=== PATIENT | female | born 1955 | race Caucasian/White ===

== ENCOUNTER 2023-12-03 09:51 | Outpatient (CLI) | payer MEDICARE, MEDICAID, SELFPAY ==
[2023-12-03 11:32] LABS: Alanine Aminotransferase 13 U/L (6-35); Albumin Level 4.1 g/dL (3.5-5.1); Alkaline Phosphatase 48 U/L (38-126); Anion Gap 1 mmol/L (8-16); Aspartate Amino Transferase 22 U/L (14-36); Bilirubin,Total 0.5 mg/dL (0.2-1.3); Blood Urea Nitrogen 21 mg/dL (7-17); Calcium 8.7 mg/dL (8.4-10.2); Carbon Dioxide 34 mmol/L (22-30); Chloride 100 mmol/L (98-107); Estimated Glomerular Filt Rate > 60; Glucose 85 mg/dL (65-110); Potassium 3.8 mmol/L (3.4-5.0); Sodium 135 mmol/L (137-145)
== END 2023-12-03 09:52 | disposition home or self-care (01) ==
PROVIDERS: PCP Family Medicine
DX: I10 Essential (primary) hypertension (principal)
CPT/HCPCS: 36415; 80053

== ENCOUNTER 2025-02-27 00:56 | Day surgery (SDC) | payer MEDICARE, SELFPAY ==
[2025-02-18 15:00] VITALS: BMI 22.4
--- NOTE | 2025-02-18 15:19 | PC.NURSE ---
Report to the Outpatient Waiting Room, entrance under the green pavilion located off [facility], at time ___6:00AM____ on date ___02/27/25___. Planned Procedure Time: ___7:30AM .? Time changes happen often and if your time is changed the preop area will call you the afternoon before. - You and your visitor will be asked to self-screen and do not enter if you have any COVID symptoms. Please call surgeon if you need to reschedule. - A mask is optional within the hospital at this time. Patients may have clear liquids (water, carbonated beverages, clear teas, apple juice) until 3 hours prior to surgery (4:30AM) with a maximum of 20 ounces. - No food from midnight until time of surgery and no smoking, or chewing tobacco (or any form of nicotine). No chewing gum, candy or mints. Take only the following medications with a SIP of water on the morning of surgery: ____AMLODIPINE, ATENOLOL, GABAPENTIN DO NOT STOP ANY OF YOUR OTHER PRESCRIPTION MEDICATIONS PRIOR TO SURGERY EXCEPT THE FOLLOWING Hold all vitamins and supplements for 3 days per anesthesiologist.-LAST DOSE 02/23/25 Please no make-up, nail french, hairspray, perfume, deodorant, or body powder the day of surgery.? No jewelry (including any body piercings) or valuables the day of surgery, leave them at home.? Please take a shower or bath the night before, or the morning of, surgery with an antibacterial soap.? Wear comfortable, loose fitting clothing.? - Jewelry must be removed prior to entering the operating room.? Rings and piercings that are not removed may be cut off. - The hospital will not accept responsibility for valuables.? - Please leave all valuables, including medications, at home the day of surgery. If you are going home after surgery, a licensed ambulance driver must drive you home.? - NO public transportation without another adult if you receive anesthesia. - We recommend that an adult stay with you for 24 hours following discharge. - We also recommend that you do not drive, make important decision, drink alcoholic beverages, or take any drugs that were not prescribed by your health care provider for at least 24 hours after your discharge time. Follow any additional instructions given to you from your surgeon. Telephone instructions given to ___PATIENT and asked if any additional questions and then verbalized understanding. Patient advised to call surgeon office or pre surgery nurse liaison [phone] if any additional questions.
--- NOTE | 2025-02-26 14:22 | WPDANESEPPF ---
Anes - Initial Pre Proc Eval Procedure: Operation Date: 02/27/25 07:30 Proposed Procedures p Excision of Vulvar Lesions - Tarun Arreola MD Date/Time: 02/26/25 14:22 Surgeon: Tarun Arreola MD Pre Op Diagnosis: Vulvar Lesions Patient Data Age: 69 Gender: F Height: 1.68 m Weight: 63 kg Allergies Allergy/AdvReac Type Severity Reaction Status Date / Time No Known Allergies Allergy Verified 02/27/25 06:24 Home Medications ?Medication ?Instructions ?Recorded ?Confirmed ?Type alendronate 70 mg tablet 70 mg PO WEEKLY 02/18/25 02/27/25 History amlodipine 10 mg tablet 10 mg PO QAM 02/18/25 02/27/25 History atenolol 100 mg tablet 100 mg PO QAM 02/18/25 02/27/25 History ergocalciferol (vitamin D2) 1,250 1,250 mcg PO WEEKLY 02/18/25 02/27/25 History mcg (50,000 unit) capsule gabapentin 300 mg capsule 900 mg PO TID 02/18/25 02/27/25 History magnesium 200 mg tablet 800 mg PO TID 02/18/25 02/27/25 History omeprazole 20 mg capsule,delayed 20 mg PO QAM 02/18/25 02/27/25 History release pravastatin 40 mg tablet 40 mg PO HS 02/18/25 02/27/25 History Patient hx anesthesia problems: none Family hx anesthesia problems: none Results Review: All pre-operative results and documents have been reviewed as part of the pre-operative evaluation. [facility] Past Medical History Medical History (Updated 02/26/25 @ 14:22 by Nitesh Akers DO) GERD (gastroesophageal reflux disease) Hypertension Hyperlipidemia Social History Social History Smoking packs per day: 1 Smoking cigarettes per day: 20.0 Years smoked: 50 Smoking pack-years: 50.00 Smoking status: Current every day smoker Tobacco type: cigarettes Alcohol intake: current Living arrangements: with family Additional living arrangements comments: HUSB Spiritual care concerns: No Anes - Eval Final PreProcedure Day of Procedure 02/26/25 14:22 Patient weight: normal Heart: regular rate and rhythm Lungs: clear to auscultation and normal air movement Airway: Mallampati scale class II Neurological: alert and oriented Last oral intake: >/= 8 hours ASA classification: III Emergent: no Anesthetic plan: proceed Anesthesia type and monitoring: general GIVS and standard monitoring Results Review: All pre-operative results and documents have been reviewed as part of the pre-operative evaluation. Informed Consent: The patient's anesthetic plan and its attendant risks and benefits were discussed with the patient/family/POA. Questions were solicited and answers provided to the satisfaction of the patient/family/POA.
--- OUTSIDE RECORDS SUMMARY | 2025-02-27 01:00 | XMS_ITS | Clinical Summary ---
Author Organization [facility] Address [address] [place] [address] Care Team Providers Care Business Support Specialist Name Role Phone Unavailable Primary Care Provider Unavailabl e Source Comments [facility],non-owned Affiliates and Associated Physician Practices is amultiple site organization consisting of ambulatory clinics and hospital sitesin [place], [place], [place] and [place]. This disclosure is being madepursuant to the Care Everywhere program and may not contain all information available regarding this patient. Last updated 18.[facility] Encounters Date Type Department Care Team Description 01/23/2025 Lab Requisition [facility] - DermPath Lab [facility] [place] [address] Raz Delgado MD 01/09/2025 Lab Requisition [facility] - Derm[facility] Lab [address] [place] [address] Raz Delgado MD from Last 3 Months Social History Tobacco Use Types Packs/Day Years Used Date Smoking Tobacco: Never Assessed Comments Unknown Sex and Gender Information Value Date Recorded Sex Assigned at Not on file Legal Sex Female 10:44 AM CDT Gender Identity Not on file Sexual Orientation Not on file Plan of Treatment Health Maintenance Due Date Last Done Comments BONE DENSITY TESTING 1955 COLOGUARD (AGES 45-75) - COL ON CA SCREENING 1955 COLON MONITORING 1953 COLONOSCOPY - COLON CA SCREENING 1953 CT COLONOGRAPHY - COLON CA SCREENING 1955 Colorectal Cancer Screening 1953 FIT - COLON CA SCREENING 1953 FLEX SIG - COLON CA SCREENING 1953 LIPID TESTING 1955 MAMMOGRAM 1953 HEPATITIS C SCREENING 09/12/1971 DTAP/TDAP/TD VACCINES (1 - Tdap) 1972 PNEUMOCOCCAL VACCINE 50+ (1 of 1 - PCV) 2003 ZOSTER VACCINE (1 of 2) 2003 COVID-19 VACCINE (1 - 2023-2 5 season) 2024 DEPRESSION SCREENING 09/12/2024 MEDICARE AWV CALENDAR YEAR 2024 INFLUENZA VACCINE (Season Ended) 2025 Respiratory Syncytial Virus (RSV) Vaccine Pt: or over 60 yrs (1 - 1-dose 75+ series) 2028 HEPATITIS B VACCINE Aged Out No longe r eligible based on patient's age to complete this topic HIB VACCINE Aged Out No longer eligi ble based on patient's age to complete this topic HPV VACCINE Aged Out No longer eligi ble based on patient's age to complete this topic MENINGOCOCCAL (Group B) VACC INE SHARED DECISION-MAKING Aged Out No longer eligibl e based on patient's age to complete this topic MENINGOCOCCAL GROUPS A/C/Y/W VACCINE Aged Out No longer eligible b ased on patient's age to complete this topic Procedures Procedure Name Priority Date/Time Associated Diagnosis Comments DERMATOPATHOLOGY Routine 01/21/2025 12:0 0 AM CDT DERMATOPATHOLOGY Routine 01/07/2025 12:0 0 AM CDT from Last 3 Months Results * DERMATOPATHOLOGY (01/21/2025 12:00 AM CDT) Only the most recent of2 resultswithin the time period is included. Case Report Dermatopathology Report Case: [id number] Authorizing Provider: Raz Delgado MD Collected: 01/21/2025 12:00 AM Ordering Location: [facility] - Received: 01/23/2025 10:54 AM DermPath Lab Pathologist: Kasia Mcqueen MD Specimen: Skin, right nasal fold 2:20 PM CDT DERMATOPATHOLOGY LABORATORY Final Diagnosis Specimen A. SKIN, right nasal fold: DERMAL SCAR RESIDUAL BASAL CELL CARCINOMA NOT IDENTIFIED (L90.5) (see microscopic description) 2:20 PM CDT DERMATOPATHOLOGY LABORATORY at 1419 CDT Clinical History BCC Bx Site. Prior Biopsy 2:20 PM CDT DERMATOPATHOLOGY LABORATORY Gross Description Specimen A: Received is one formalin filled container labeled with the patient's name and designated right nasal fold. The specimen consists of a curettage and desiccation biopsy measuring 2x2x1 mm. Jar 0. 2:20 PM CDT DERMATOPATHOLOGY LABORATORY Microscopic Description Specimen A. SKIN, right nasal fold: There are fibroblasts and collagen bundles oriented parallel to the skin surface. There are elongated blood vessels, some of which are oriented perpendicular to the skin surface. No basal cell carcinoma is identified. The scar-like features are present at the margin of the specimen. Additional deeper sections were obtained and reviewed. 2:20 PM CDT DERMATOPATHOLOGY LABORATORY Disclaimer An external and internal positive and negative controls are appropriate for the histochemical, immunohistochemical and immunofluorescence stain(s) in this case (if any), except where stated explicitly. The performance characteristics of the stain(s) cited in this report were developed and its performance characteristic determined by the Dermatopathology Laboratory at [facility], directed by Dr. Isabell Aguilar. These tests need not be, and therefore are not, approved by the [place] Food and Drug Administration. The tests are used for clinical purposes. Billing Codes Specimen Charges Stain Charges 85373 1 2:20 PM CDT DERMATOPATHOLOGY LABORATORY Embedded Images 2:20 PM CDT DERMATOPATHOLOGY LABORATORY Pathology/Cytolog y TISSUE SPECIMEN FROM SKIN / Unknown 01/21/2025 01/23/2025 10:54 AM CDT us Raz Delgado MD LAB - PATHOLOGY/CYTOLOGY ORDERAB LES Final Result DERMATOPATHOLOGY LABORATORY [facility] - Department of Dermatology [facility] Medicine [address] [place] [address], [address] [place] [address], [facility] [phone] from Last [address] [place] [address] [place] [address] [facility] [place] [address]
--- OUTSIDE RECORDS SUMMARY | 2025-02-27 01:00 | XMS_ITS | Data Portability ---
Author Organization [facility] [place] Address [address] [place] [address] Care Team Providers Care Breadman Name Role Phone CHRISTI TORRES Primary Care Provider [phone] Assessment No assessment recorded. Plan of Treatment Reminders Order Date Submit Date Provider Last Modified By Organization Details Last Modified Time Details Appointments SURG MISC 025 07:30AM Lynne HAWKINS MD Not available Not available Not available SURG POST OP 025 01:45PM Lynne HAWKINS MD Not available Not available Not available Lab None recorde d. Referral None recorde d. Procedures None recorde d. Surgeries excisio n, vulva (SURG) 025 [id number] [facility] [place] [facility], [facility] [address], [address], 01/17/2025 10:26:09 Imaging None recorde d. Medication Orders None recorde d. Patient TargetsNo targets recorded. Patient InstructionsNo instructions recorded. Reason for Referral None Reported. Procedures Surgical History Date Name Laterality Status Provider Name and Address Organization Details Recorded Time 5 Orthopedic Surgery completed [facility] 01/09/2025 15:00:37 4 Date of Last Mammogram completed [facility] 01/09/2025 14:56:06 4 Date of Last Colonoscopy completed [facility] 01/09/2025 14:57:37 2 Breast Biopsy completed [facility] 01/09/2025 15:03:06 1 excision of basal cell carcinoma completed [facility] 01/09/2025 15:03:58 0 excision of basal cell carcinoma completed [facility] 01/09/2025 15:03:51 Imaging Results None recorded. Procedure Notes None recorded. Medical Equipment None Reported. Allergies No known drug allergies Medications Name Sig Start Date Stop Date Status Note LastModified by Organization Details LastModified Time pravastatin 40 mg tablet TAKE 1 TABLET BY MOUTH AT BEDTIME active Not Available Not Available No t Available atenolol 100 mg tablet TAKE 1 TABLET BY MOUTH ONCE DAILY active Not Available Not Available No t Available alendronate 70 mg tablet TAKE 1 TABLET BY MOUTH ONCE A WEEK active Not Available Not Available No t Available diazepam 2 mg tablet Take 1 tablet 3 times a day by oral route. active Not Available Not Available No t Available amlodipine 10 mg tablet TAKE 1 TABLET BY MOUTH ONCE DAILY active Not Available Not Available No t Available gabapentin 300 mg capsule TAKE 3 CAPSULES BY MOUTH THREE TIMES DAILY active Not Available Not Available No t Available omeprazole 20 mg capsule,delaye d release TAKE 1 CAPSULE BY MOUTH ONCE DAILY NEEDED active Not Available Not Available No t Available ergocalciferol (vitamin D2) 1,250 mcg (50,000 unit) capsule TAKE 1 CAPSULE BY MOUTH EVERY TUESDAY active Not Available Not Available No t Available Vitals Date Recorded Body height Body mass index (BMI) Body weight Systolic blood pressure Diastolic blood pressure Provider Name and Address Organization Details Last Updated DateTime 01/09/2025 167.64 cm 23.2 kg/m2 58567.3 g 124 mm[Hg] 72 mm[Hg] [facility] 5 14:52:39 Social History Question Answer Notes LastModified by Organizat ion Details LastModified Time In The 14 Days Before Symptom Onset, Have You Had Close Contact With A Laboratory-confirmed COVID-19 While That Case Was Ill? No Information not available 01/09/2025 In The 14 Days Before Symptom Onset, Have You Had Close Contact With A Person Who Is Under Investigation For COVID-19 While That Person Was Ill? No Information not available 01/09/2025 Have You Been To An Area Known To Be High Risk For COVID-19? No Information not available 01/09/2025 Sex: Unknown Functional Status None recorded. Mental Status None recorded. Family History Relationship Description Onset Age of this Age Resolved Age Notes LastModified by Organization Details LastModified Time Father No current problems or disability Not available 01/09 14:59:40 Mother No current problems or disability Not available 01/09 14:59:40 Mother Malignant tumor of breast Not available 2024 14:59:54 Daughter Malignant tumor of breast Not available 2024 14:59:54 Medical History Condition Response Allergies (Food, seasonal, environmental ) N Other N Drug/Latex Allergies/Reactions N Blood Transfusion N Breast Cancer N Dermatologic Disorders N Lung Disease N Defects or Inherited Disease N Breast Problem N Gestational Diabetes N Hematologic disorders N Anesthesia Complications N History of STI N Deep Vein Thrombosis N Polycystic ovary syndrome N Anxiety Disorder N Autoimmune disease N Arthritis N Polyps N Infertility N Acid Reflux (GERD) N History of abnormal pap N Cancer N Varicosities N Stroke N Neurologic/Epilepsy Y Endometriosis N High Cholesterol N Fibromyalgia N Headaches N Kidney Disease N Heart Problems N Thyroid Problems N Kidney or Bladder Problems N GI Problems N Eating Disorder N Anemia N Art (IVF or FET) N Psychiatric Illness N Ovarian Cancer N Diabetes N Pulmonary (TB, Asthma) N Hepatitis/Liver Disease N No Past Medical History N Eczema N Urinary Tract Infection N Abuse/Domestic Violence N Asthma N Trauma/Violence N Depression/ depression N Heart Disease N Pre-Eclampsia N Hypertension Y Osteoporosis N Thrombophilias N Gynecological History Statement/Question Response Abnormal Pap N Date of Last Mammogram 09/12/2023 Was last menstrual period normal Y STIs/STDs N HPV Vaccine N Current Control Method Abstinence If Post Menopausal, Age at Menopause 44 Are cycles usually normal Y Date of Last Colonoscopy 09/12/2023 Sexually Active? N Menses Monthly N Age of first menstrual cycle 11 Date of Last Pap Smear Sexual Problems? N LMP Unknown Obstetrics History GPAL:G 2 P 0 0 0 2 Type Value Living 2 Total 2 Past Encounters Encounter ID Performer Location Encounter Start Date Encounter Closed Date Diagnosis/Indication Diagnosis SNOMED-CT Code Diagnosis ICD10 Code Diagnosis Note [id number] Tarun Hawkins MD [facility] [address] [address] 01/09/2025 14:21:43 01/09/2025 14:42:13 [id number] Tarun Hawkins MD [facility] [address] [address] 01/09/2025 14:46:45 01/09/2025 15:28:52 Lesion of vulva 505101719 [age] year old female with symptomati c vulvar lesions. She has multiple inclusion cysts on the right. these rub on her clothing and become inflamed and irritated. They cause discomfort . She would like them removed. It was examined. There are 4-5 inclusion cyst on the right labia majora. We agreed to remove the cyst surgically under anesthesia . The patient understand s the procedure. The procedure was described to the patient in great detail. the patient also understand s the risks. The risks were also explained in detail. She understand s that injuries May occur during surgery. She understand s these injuries can result in hospitaliz ation, more surgery, and severe illness. She understand s there is risk of hemorrhage and infection. I spent more than 30 minutes on her care in total. Health Concerns Section Related Observation LastModified by Organization Detai ls LastModified Time None Recorded Concern Status LastModified by Organization Details LastModified Time None Recorded Advance Directives Directive None Recorded Payers Insurance Date Sequence Insurance Name Policy Number Policy Zapien Covered Member ID Zapien Member ID Guarantor Name 02/24/2025 1 [facility] [id number] Odalis Álvaro [id number] Odalis Rea Notes Date Note Type Note Provider Name and Address Organization Details Recorded Time 01/09/2025 text/html year old female with symptomatic vulvar lesions. She has multiple inclusion cysts on the right. these rub on her clothing and become inflamed and irritated. They cause discomfort. She would like them removed. It was examined. There are 4-5 inclusion cyst on the right labia majora. We agreed to remove the cyst surgically under anesthesia. The patient understands the procedure. The procedure was described to the patient in great detail. the patient also understands the risks. The risks were also explained in detail. She understands that injuries May occur during surgery. She understands these injuries can result in hospitalization, more surgery, and severe illness. She understands there is risk of hemorrhage and infection. I spent more than 30 minutes on her care in total. Tarun Hawkins MD [address], [place], [address], [facility] 01/09/2025 15:28:03 OBGyn Episode Ob Episode Information Episode Created Date Number of Fetuses Patient Bloodtype Patient rh Status Prepregnancy Weight lbs Domestic Partner Domestic Partner Phone Father Name Options Advisor Status 01/10/20 25 1 CLOSED Fetus Data First Name Last Name Admitted to NICU Weight (g) Sex Living Outcome Pediatric Complications Fetus ID Race Codes Race Delivery Type 3713.55 [id number] F Full Term [id number] Vaginal Delivery Ja Calculation Initial Ja Date Initial Exam Date Initial Exam Provider Initial Ultrasound Date Last Menstrual Period Date Ultra Sound Weeks Gestation 0 Eighteen To Twenty Week Ja Update Ultra Sound Date Fundal Height At Umbil Quickening Date Ultra Sound Latest Weeks Gestation Final Ja Confirmed By Final Ja Confirmed Date Final Ja Date Ultra Sound Latest Days Gestation 0 0 Menstrual History Last Menstrual Date Menses Monthly On Bcp Conception Prior Menses Frequency Hcg Plus Date Menarche Onset Age Delivery Information Delivery Date Delivery Type Labor Anesthesia Weeks Gestation Incision Type Labor Labor Length Hrs Delivered By Post Complications Tubal Sterilization Discharge Date Comments 3 40 passed from breast cancer at age 30 Discharge Information Feeding Method Contraceptive Method Maternal HG B and HCT Levels Ob Episode Information Episode Created Date Number of Fetuses Patient Bloodtype Patient rh Status Prepregnancy Weight lbs Domestic Partner Domestic Partner Phone Father Name Options Advisor Status 01/10/20 25 1 CLOSED Fetus Data First Name Last Name Admitted to NICU Weight (g) Sex Living Outcome Pediatric Complications Fetus ID Race Codes Race Delivery Type 3826.95 [id number] M Full Term [id number] Vaginal Delivery Ja Calculation Initial Ja Date Initial Exam Date Initial Exam Provider Initial Ultrasound Date Last Menstrual Period Date Ultra Sound Weeks Gestation 0 Eighteen To Twenty Week Ja Update Ultra Sound Date Fundal Height At Umbil Quickening Date Ultra Sound Latest Weeks Gestation Final Ja Confirmed By Final Ja Confirmed Date Final Ja Date Ultra Sound Latest Days Gestation 0 0 Menstrual History Last Menstrual Date Menses Monthly On Bcp Conception Prior Menses Frequency Hcg Plus Date Menarche Onset Age Delivery Information Delivery Date Delivery Type Labor Anesthesia Weeks Gestation Incision Type Labor Labor Length Hrs Delivered By Post Complications Tubal Sterilization Discharge Date Comments 7 40 Discharge Information Feeding Method Contraceptive Method Maternal HG B and HCT Levels
--- OUTSIDE RECORDS SUMMARY | 2025-02-27 01:00 | XMS_ITS | Clinical Summary ---
Author Organization [facility] Building [address] [facility] [place] [address] Care Team Providers Care Process Improvement Analyst Name Role Phone Yaya Sargent MD Primary Care Provider [phone] Garfield Cook MD Unavailable [phone] Allergies No known active allergies Medications alendronate (FOSAMAX) 70 mg tablet Take 70 mg by mouth every 7 days Take in the morning with a full glass of water, on an empty stomach, and do not take anything else by mouth or lie down for the next 30 min. Active amLODIPine (NORVASC) 10 mg tablet Take 10 mg by mouth daily Active atenoloL (TENORMIN) 100 mg tablet Take 100 mg by mouth daily Active gabapentin (NEURONTIN) 300 mg capsule Take 300 mg by mouth 3 (three) times a day Takes 900mg TID Active magnesium oxide 400 mg magnesium capsule Take 800 mg by mouth 3 (three) times a day Active mirtazapine (REMERON) 15 mg tablet Take 15 mg by mouth nightly Active omeprazole (PriLOSEC) 20 mg capsule Take 20 mg by mouth daily Active pravastatin (PRAVACHOL) 40 mg tablet Take 40 mg by mouth daily Active cholecalciferol (VITAMIN D-3) 50,000 unit capsule Take 50,000 Units by mouth once a week Active biotin 1 mg capsule Take by mouth States not taking right now, instructed to not take one week prior to surgery and can resume after surgery Active oxyCODONE (ROXICODONE) 5 mg immediate release tabletIndicatio ns:Pain Take 1 tablet (5 mg total) by mouth every 6 (six) hours as needed for pain 10 tablet 2 Active Active Problems Problem Noted Date Diagnosed Date History of breast surgery 11/12/2021 Encounters Date Type Department Care Team Description 01/05/2025 11:51 AM CDT - 01/05/2025 11:59 PM CDT Hospital Encounter [address] [address] Nicotine dependence, cigarettes, uncomplicated Discharge Disposition: Discharge to home or self care from Last 3 Months Surgical History Surgery Date Site/Laterality Comments BREAST BIOPSY Right BREAST BIOPSY 09/22/2021 Left ANKLE FRACTURE SURGERY Right CYST REMOVAL TONSILLECTOMY Medical History Medical History Date Comments Skin cancer Hypertension GERD (gastroesophageal reflux disease) acid reflux Neuropathy Family History Medical History Relation Name Comments Breast cancer Daughter Breast cancer Mother Relation Name Status Comments Daughter Mother Social History Tobacco Use Types Packs/Day Years Used Date Smoking Tobacco: Every Day Cigarettes 0.8 50 AUDIT-C Answer Date Recorded Q1: How often do you have a drink containing alc ohol? Never 11/12/2021 Q2: How many drinks containi ng alcohol do you have on a typical day when you are drinking? 1 or 2 11/12/2021 Q3: How often do you have six or more drinks on one occasion? 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 Gender Identity Not on file Sexual Orientation Not on file Obstetrics History Para Term AB IAB SAB Ectopic Multiple Livin g Live Births 2 2 2 Date Outcome GA Total Labor Labor/2nd/3rd Weight Sex Type Anes PTL Denise A1 A5 Name Clin Term Term Last Filed Vital Signs Vital Sign Reading Time Taken Comments Blood Pressure 145/79 11/13/2021 7:18 AM COLLEGE OR UNIVERSITY BUSINESS MANAGER Pulse 61 11/13/2021 11:00 AM COLLEGE OR UNIVERSITY BUSINESS MANAGER Temperature 36.7 C (98.1 F) 11/13/2021 7:18 AM COLLEGE OR UNIVERSITY BUSINESS MANAGER Respiratory Rate 18 11/13/2021 7:18 AM COLLEGE OR UNIVERSITY BUSINESS MANAGER Oxygen Saturation 98% 11/13/2021 7:18 AM COLLEGE OR UNIVERSITY BUSINESS MANAGER Inhaled Oxygen Concentration - - Weight 68.5 kg (151 lb) 11/12/2021 10:34 AM COLLEGE OR UNIVERSITY BUSINESS MANAGER Height 170.2 cm (5' 7) 11/12/2021 10:34 AM COLLEGE OR UNIVERSITY BUSINESS MANAGER Body Mass Index 23.65 11/12/2021 10:34 AM COLLEGE OR UNIVERSITY BUSINESS MANAGER Plan of Treatment Health Maintenance Due Date Last Done Comments Colon Cancer Screening-Colonoscopy 1955 Depression Screening 1955 Hepatitis C Screening 1955 Hepatitis B Screening 1971 Zoster Vaccine (2 of 3) 01/30/2015 12/05/2014 Well Visit 65+ 2018 Pneumococcal vaccine 65+ (2 of 2 - PCV) 12/14/2019 12/13/2018 Osteoporosis Screening-Bone Density Scan 08/18/2020 08/18/2018 Fall Risk Assessment 11/12/2022 11/12/2021 Covid-19 Vaccine (5 - 2023-2 5 season) 2024 02/10/2022, 07/29/2021, 12/31/2020, Additional history exists DTaP/Tdap/Td Vaccine (2 - Td or Tdap) 12/05/2024 12/05/2014 Breast Cancer Screening-Mammogram 06/11/2025 06/11/2024, 06/08/2023, 08/05/2021, Additional history exists Lung Cancer Screening 01/06/2026 01/05/2025 Influenza Vaccine Completed 06/18/2024, , 06/26/2020, Additional history exists Medical Devices Implanted Type Area [employer]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 Device 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 Shelf Expiration Date Model / Serial / Lot Plate Plate Right: Ankle [employer] [id number] Orange 20ga 5cm Reposition J Curve Wire Centimeter Oumar Stabilizer - [id number] Implanted:Qty: 1 on 11/12/2021 at [facility] [employer] [id number] 02/18/2026 [id number] / / [id number] Procedures Procedure Name Priority Date/Time Associated Diagnosis Comments CT LUNG CANCER SCREENING Schedule Routine, Read Routine (OP Routine) 01/05/2025 12:02 PM CDT Nicotine dependence, cigarettes, uncomplicated SCREENING MAMMOGRAM BILATERAL W SERGIO Schedule Routine, Read Routine (OP Routine) 06/11/2024 12:48 PM CDT Screening mammogram, encounter for DEXA AXIAL SKELETON BONE DENSITY 1 OR MORE SITES Routine 08/18/2018 9:10 AM COLLEGE OR UNIVERSITY BUSINESS MANAGER from Last 3 Months or Most Recently Relevant to Health Maintenance Results * CT Lung Cancer Screening (01/05/2025 12:02 PM CDT) Anatomical Region Laterality Modality Chest N/A Computed Tomogra phy 01/17/2025 8:51 AM CDT Narrative 01/17/2025 8:56 AM CDT EXAM DESCRIPTION: CT LUNG CANCER SCREENING REASON FOR STUDY: Screening CT of the chest in a current smoker with a 50 pack year smoking history. Additional history: None. TECHNIQUE: Low dose CT scan of the chest was performed without intravenous contrast using helical scanning technique. The exam extends from the lung apices through the lung bases. Automatic exposure control was used as a dose optimization technique. NOTE: This study was performed for the specific purposes of lung cancer screening and is not an alternative to diagnostic chest CT. RADIATION DOSE: CT dose index volume (CTDIvol) = 2.89 mGy COMPARISON: None FINDINGS: SMOKING RELATED LUNG DISEASE: There are mild emphysematous changes of lungs with scattered mild subsegmental atelectasis and scarring. There are scattered ground-glass centrilobular airspace opacities in the bilateral lungs, which is likely due to smoking-related respiratory bronchiolitis. There is minimal right apical and mild left apical pleural thickening and scarring. There is no definite evidence of a pneumothorax. There is scattered bronchial wall thickening, which is likely related to mild chronic bronchitis/bronchiolitis. There is no definite evidence of a focal consolidation or pleural effusion. There is a small calcified granuloma in the medial right lower lobe. LUNG NODULES: There are scattered small pulmonary nodules noted. For example, there is a subpleural 0.3 cm pulmonary nodule in the anterior right upper lobe (axial image 61). There is a subpleural 0.2 cm pulmonary nodule in the anterior right upper lobe (axial image 75). There is a subpleural 0.4 cm pulmonary nodule in the lateral right lower lobe (axial image 154). There is a subpleural 0.3 cm pulmonary nodule in the posterolateral left upper lobe (axial image 133). CORONARY ARTERY CALCIFICATION: Present. OTHER: The heart size is normal. There is no definite evidence of pericardial effusion. There are atherosclerotic changes of the thoracic aorta and coronary vessels. There is no definite unenhanced CT evidence of mediastinal, hilar, or axillary lymphadenopathy. There are scattered subcentimeter mediastinal lymph nodes noted with the largest measuring 0.7 cm in the subcarinal region (axial image 138). The right adrenal gland is grossly unremarkable. There is nonspecific nodular thickening of the left adrenal gland. There is a 2.0 cm left adrenal nodule, which demonstrates attenuation characteristics compatible with a benign adrenal adenoma, therefore no follow-up imaging is recommended. There is mild osteopenia with mild degenerative changes of the spine. IMPRESSION: Scattered small pulmonary nodules with the largest measuring up to 0.4 cm. Mild emphysematous changes of lungs with scattered mild subsegmental atelectasis and scarring. Scattered ground-glass centrilobular airspace opacities in the bilateral lungs, which is likely due to smoking-related respiratory bronchiolitis. Scattered bronchial wall thickening, which is likely related to mild chronic bronchitis/bronchiolitis. Lung-RADS category 2: Benign appearance or behavior. Recommendation: Low dose Screening CT of chest in 12 months. THIS IS AN ELECTRONICALLY VERIFIED FINAL REPORT 01/17/2025 8:56 AM - Electronically signed by Daryl Mercado D.O. PS: PS Report ID: [id number] Reading Location: [id number] Procedure Note Daryl Mercado, DO - 01/17/2025 EXAM DESCRIPTION: CT LUNG CANCER SCREENING REASON FOR STUDY: Screening CT of the chest in a current smoker with a50 pack year smoking history. Additional history: None. TECHNIQUE: Low dose CT scan of the chest was performed without intravenous contrast using helical scanning technique. The exam extends from the lung apices through the lung bases. Automatic exposure control was used as adose optimization technique. NOTE: This study was performed for the specific purposes of lung cancer screening and is not an alternative to diagnostic chest CT. RADIATION DOSE: CT dose index volume (CTDIvol) = 2.89 mGy COMPARISON: None FINDINGS: SMOKING RELATED LUNG DISEASE: There are mild emphysematouschanges of lungs with scattered mild subsegmental atelectasis and scarring. Thereare scattered ground-glass centrilobular airspace opacities in the bilateral lungs, which is likely due to smoking-related respiratory bronchiolitis. There is minimal right apical and mild left apical pleural thickening and scarring. There is no definite evidence of a pneumothorax. There is scattered bronchial wall thickening, which is likely related to mildchronic bronchitis/bronchiolitis. There is no definite evidence of a focal consolidation or pleural effusion. There is a small calcified granulomain the medial right lower lobe. LUNG NODULES: There are scattered small pulmonary nodules noted. For example, there is a subpleural 0.3 cm pulmonary nodule in the anteriorright upper lobe (axial image 61). There is a subpleural 0.2 cm pulmonarynodule in the anterior right upper lobe (axial image 75). There is a subpleural 0.4cm pulmonary nodule in the lateral right lower lobe (axial image 154). Thereis a subpleural 0.3 cm pulmonary nodule in the posterolateral left upper lobe (axial image 133). CORONARY ARTERY CALCIFICATION: Present. OTHER: The heart size is normal. There is no definite evidence of pericardial effusion. There are atherosclerotic changes of the thoracicaorta and coronary vessels. There is no definite unenhanced CT evidence of mediastinal, hilar, oraxillary lymphadenopathy. There are scattered subcentimeter mediastinal lymphnodes noted with the largest measuring 0.7 cm in the subcarinal region (axialimage 138). The right adrenal gland is grossly unremarkable. There is nonspecificnodular thickening of the left adrenal gland. There is a 2.0 cm left adrenalnodule, which demonstrates attenuation characteristics compatible with a benign adrenal adenoma, therefore no follow-up imaging is recommended. There is mild osteopenia with mild degenerative changes of the spine. IMPRESSION: Scattered small pulmonary nodules with the largest measuring up to 0.4cm. Mild emphysematous changes of lungs with scattered mild subsegmental atelectasis and scarring. Scattered ground-glass centrilobular airspace opacities in the bilateral lungs, which is likely due to smoking-related respiratory bronchiolitis. Scattered bronchial wall thickening, which is likely related to mildchronic bronchitis/bronchiolitis. Lung-RADS category 2: Benign appearance or behavior. Recommendation: Low dose Screening CT of chest in 12 months. THIS IS AN ELECTRONICALLY VERIFIED FINAL REPORT 01/17/2025 8:56 AM - Electronically signed by Daryl Mercado D.O. PS: PS Report ID: [id number] Reading Location: [id number] Yaya Sargent MD IMG CT PROCEDURES Final Resul t * Screening Mammogram Bilateral W Sergio (06/11/2024 12:48 PM CDT) Anatomical Region Laterality Modality Breast Bilateral Mammography Impressions 06/11/2024 1:05 PM CDT BI-RADS ATLAS category (overall): 2 - Benign There is no mammographic evidence of malignancy. A 1 year screening mammogram is recommended. The patient has been or will be contacted. We recommend annual screening mammography for women at average risk of breast cancer beginning at age 40, based on guidelines of the [employer] (ACR Practice Parameter for the Performance of Screening and Diagnostic Mammography) and [place]. For women with and elevated risk of breast cancer, please refer to the ACR Practice Parameter for specific screening recommendations. The patient will be entered into a reminder system with a target due date of 1 year for her next screening exam. Narrative 06/11/2024 1:05 PM CDT Screening Mammogram Bilateral W Sergio: 06/11/24 The study was acquired using full field digital technology and interpreted from soft copy. 2D digital mammographic views, as well as 3D digital tomosynthesis were performed in the CC and MLO projections. CLINICAL: Screening mammogram, encounter for. No relevant medical history has been documented for this patient. History of breast cancer in Mother, Daughter. COMPARISONS: 06/08/2023 Screening Mammogram Bilateral W Sergio 02/15/2022 Diagnostic Mammogram Left W Sergio 11/12/2021 Radiologic Examination of Surgical Specimen 11/12/2021 Mammo Guided Localization Breast Left 09/22/2021 Stereotactic Breast Biopsy Left BREAST TISSUE: There are scattered areas of fibroglandular density. FINDINGS: Unchanged benign mass in the right breast. A biopsy marker clip is unchanged in the right breast. There are stable post operative changes in the left breast. There is no new suspicious finding in either breast on mammogram. Self Screening Mammogram IMG MAMMO PROCEDURES Fi nal Result * Dexa Axial Skeleton Bone Density 1 or 2 Site (08/18/2018 9:10 AM COLLEGE OR UNIVERSITY BUSINESS MANAGER) Anatomical Region Laterality Modality Body N/A Radiographic Rufina ging 08/18/2018 9:10 AM COLLEGE OR UNIVERSITY BUSINESS MANAGER Impressions 08/18/2018 2:02 PM COLLEGE OR UNIVERSITY BUSINESS MANAGER 1. Low bone mass by WHO criteria. 2. The WHO fracture risk assessment tool (FRAX) indicates that the 10 year risk for a major osteoporotic fracture is 11.0% and the 10 year risk for a hip fracture is 2.8%. The FRAX tool has not been validated in patients currently or previously treated with pharmacotherapy for osteoporosis. In such patients, clinical judgement must be exercised in interpreting FRAX scores as the fracture risk may be overestimated. Bone mineral density: Normal (T-score above or = -1.0) Low bone mass (T-score between -1.0 and -2.5) replaces the previously used term osteopenia Osteoporosis (T-score = or below -2.5) Medical evaluation for secondary causes of low bone mineral density may be appropriate. FRAX is a World Health Organization validated fracture risk assessment tool that calculates a person's 10 year probability of a major osteoporosis related fracture and hip fracture. According to the National Osteoporosis Foundation guidelines, postmenopausal women and men age 50 or older with low bone mass and a 10 year probability of a major osteoporosis related fracture = or greater than 20% or a 10 year probability of a hip fracture = or greater than 3% should be considered for treatment. For further information, including treatment recommendations, please refer to the 2013 ISCD Official Positions (http://www.iscd.org) and the NOF's Clinician's Guide to Prevention and Treatment of Osteoporosis (http://www.nof.org/professionals/clinical-guidelines) THIS IS AN ELECTRONICALLY VERIFIED FINAL REPORT 08/18/2018 1:59 PM - Electronically signed by Zachary Butler M.D. AB: Report ID: [id number] Reading Location: [id number] [EOD] Narrative 08/18/2018 2:02 PM COLLEGE OR UNIVERSITY BUSINESS MANAGER EXAM DESCRIPTION: Bone Density Hip/Spine (STD) REASON FOR STUDY: 62-year-old postmenopausal female, screening for osteoporosis. 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/Model: Hologic Horizon A (S/N [id number]) CLINICAL INFORMATION: Current height: 67 inches Maximum height: 67 inches Weight: 162 pounds Risk factors: Current tobacco use COMPARISON: None available. This will serve as a new baseline. Acquisition of a new DXA machine precludes comparison with older exams due to differences in scan type. FINDINGS: AP LUMBAR SPINE L1-L4: Total BMD is 0.908 g/cm2 T-score is -1.3 LEFT HIP: Total BMD is 0.751 g/cm2 T-score is -1.6 Femoral neck BMD is 0.620 g/cm2 T-score is -2.1 Procedure Note Provider, MD Donita - 01/28/2021 EXAM DESCRIPTION: Bone Density Hip/Spine (STD) REASON FOR STUDY: 62-year-old postmenopausal female, screening for osteoporosis. 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/Model: [employer] Horizon A (S/N [id number]) CLINICAL INFORMATION: Current height: 67 inches Maximum height: 67 inches Weight: 162 pounds Risk factors: Current tobacco use COMPARISON: None available. This will serve as a new baseline. Acquisition of a new DXA machineprecludes comparison with older exams due to differences in scan type. FINDINGS: AP LUMBAR SPINE L1-L4: Total BMD is 0.908 g/cm2 T-score is -1.3 LEFT HIP: Total BMD is 0.751 g/cm2 T-score is -1.6 Femoral neck BMD is 0.620 g/cm2 T-score is -2.1 IMPRESSION: 1. Low bone mass by WHO criteria. 2. The WHO fracture risk assessment tool (FRAX) indicates that the 10 year risk for a major osteoporotic fracture is 11.0% and the 10 year risk for ahip fracture is 2.8%. The FRAX tool has not been validated in patients currently or previously treated with pharmacotherapy for osteoporosis. In such patients, clinical judgement must be exercised in interpreting FRAX scores as the fracturerisk may be overestimated. Bone mineral density: Normal (T-score above or = -1.0) Low bone mass (T-score between -1.0 and -2.5) replaces the previously used term osteopenia Osteoporosis (T-score = or below -2.5) Medical evaluation for secondary causes of low bone mineral density may be appropriate. FRAX is a World Health Organization validated fracture risk assessmenttool that calculates a person's 10 year probability of a major osteoporosisrelated fracture and hip fracture. According to the National OsteoporosisFoundation guidelines, postmenopausal women and men age 50 or older with low bonemass and a 10 year probability of a major osteoporosis related fracture = or greater than 20% or a 10 year probability of a hip fracture = or greaterthan 3% should be considered for treatment. For further information, including treatment recommendations, please referto the 2013 ISCD Official Positions (http://www.iscd.org) and the NOF's Clinician's Guide to Prevention and Treatment of Osteoporosis (http://www.nof.org/professionals/clinical-guidelines) THIS IS AN ELECTRONICALLY VERIFIED FINAL REPORT 08/18/2018 1:59 PM - Electronically signed by Zachary Butler M.D. AB: Report ID: [id number] Reading Location: [place] [id number] [EOD] Yaya Sargent MD IMG DXA PROCEDURES Final Resu lt from Last 3 Months or Most Recently Relevant to [place] [address] [facility] MEDICARE [facility] REF IDPA [facility] H[facility] REF IDPA Advance Directives For more information, please contact: [phone] * Full Code (Latest Code Status on File) Date Activated Date Inactivated Comments 11/12/2021 10:35 AM 11/13/2021 2:39 PM Care Teams Process Improvement Analyst Relationship Specialty Start Date End Date Yaya Sargent MD [id number] [facility] [address] [place] [address] PCP - General 12/20/18 Garfield Cook MD [address] [place] [address] [address] [place] [address] Consulting Physician Surgery 11/13/21
--- OUTSIDE RECORDS SUMMARY | 2025-02-27 01:00 | XMS_ITS | Referral Summary ---
Author Organization [facility] Medical Office Building [address] Address [address] [place] [address] Care Team Providers Care Shift Mechanic Name Role Phone Yaya Sargent MD Primary Care Provider [phone] Garfield Cook MD Unavailable [phone] Encounters Date Type Department Care Team Description 01/05/2025 11:51 AM CDT - 01/05/2025 11:59 PM CDT Hospital Encounter [facility] [address] [place] [address] Nicotine dependence, cigarettes, uncomplicated Discharge Disposition: Discharge to home or self care from Last 3 Months Allergies No known active allergies Medications alendronate [...] hours as needed for pain 10 tablet Active Active Problems Problem Noted Date Diagnosed Date History of breast surgery 11/12/2021 Social History Tobacco Use Types Packs/Day Years [...] on file Legal Sex Female 2:15 AM 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 Gender Identity Not on file Sexual Orientation Not on file Last Filed Vital Signs Vital Sign Reading Time Taken Comments Blood Pressure 145/79 11/13/2021 7:18 AM 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 Pulse 61 11/13/2021 11:00 AM 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 Temperature 36.7 C (98.1 F) 11/13/2021 7:18 AM 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 Respiratory Rate 18 11/13/2021 7:18 AM 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 Oxygen Saturation 98% 11/13/2021 7:18 AM 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 Inhaled Oxygen Concentration - - Weight 68.5 kg (151 lb) 11/12/2021 10:34 AM 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 Height 170.2 cm (5' 7) 11/12/2021 10:34 AM 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 Body Mass Index 23.65 11/12/2021 10:34 AM 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 Plan of Treatment Not on file Medical Devices Implanted Type Area Cotton Seed Culler Device Identifier Shelf Expiration Date Model / Serial / Lot Plate Plate 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: 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 [employer] [id number] Bucyrus 20ga 5cm Reposition J Curve Wire Centimeter Oumar Stabilizer - [id number] Implanted:Qty: 1 on 11/12/2021 at [facility] Rig Builder [employer] [id number] 02/18/2026 [id number] / / [id number] Procedures Procedure Name Priority Date/Time Associated Diagnosis Comments CT LUNG CANCER SCREENING Schedule Routine, Read Routine (OP Routine) 01/05/2025 12:02 PM CDT Nicotine dependence, cigarettes, uncomplicated SCREENING MAMMOGRAM BILATERAL W SERGIO Schedule Routine, Read Routine (OP Routine) 06/11/2024 12:48 PM CDT Screening mammogram, encounter for DEXA AXIAL SKELETON BONE DENSITY 1 OR MORE SITES Routine 08/18/2018 9:10 AM 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 from Last 3 Months or Most Recently [...] Daryl Mercado D.O. PS: PS Report ID: [id number] Reading Location: [id number] Procedure Note Daryl Mercado DO - 01/17/2025 EXAM DESCRIPTION: CT LUNG [...] Daryl Mercado D.O. PS: PS Report ID: [id number] Reading Location: [id number] us Yaya Sargent MD IMG CT PROCEDURES Final [...] age 38, based on guidelines of the [employer] (ACR Practice Parameter for the Performance of Screening and Diagnostic Mammography) and [employer]. For women [...] suspicious finding in either breast on mammogram. us Self Screening Mammogram IMG MAMMO PROCEDURES Fi nal Result * Dexa Axial Skeleton Bone Density 1 or 2 Site (08/18/2018 9:10 AM 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) Anatomical Region Laterality Modality Body N/A Radiographic Rufina ging 08/18/2018 9:10 AM 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 Impressions 08/18/2018 2:02 PM 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 1. Low bone mass by WHO criteria. [...] by Zachary Butler M.D. AB: Report ID: [id number] Reading Location: [place] [id number] [EOD] Narrative 08/18/2018 2:02 PM 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 EXAM DESCRIPTION: Bone Density Hip/Spine (STD) REASON FOR STUDY: 62-year-old postmenopausal female, screening for osteoporosis. Cotton Seed Culler/Model: [employer] Horizon A (S/N [id number]) CLINICAL INFORMATION: Current height: 67 inches Maximum [...] STUDY: 62-year-old postmenopausal female, screening for osteoporosis. Cotton Seed Culler/Model: [employer] Horizon A (S/N [id number]) CLINICAL INFORMATION: Current height: 67 inches Maximum [...] by Zachary Butler M.D. AB: Report ID: [id number] Reading Location: [id number] [EOD] Yaya Sargent MD IMG DXA PROCEDURES Final Resu lt from Last 3 Months or Most Recently Relevant to [place] [address] [facility] MEDICARE ADVANTAGE [facility] H[facility] REF IDPA [facility] REF IDPA Advance Directives For more information, please contact: [phone] * Full Code (Latest Code Status on File) Date Activated Date Inactivated Comments 11/12/2021 10:35 AM 11/13/2021 2:39 PM Care Teams Shift Mechanic Relationship Specialty Start Date End Date Yaya Sargent MD [address] [facility] [address] [place] [address] PCP - General 12/20/18 Garfield Cook MD [address] [facility] [address] [place] [address] Consulting Physician Surgery 11/13/21
--- OUTSIDE RECORDS SUMMARY | 2025-02-27 01:00 | XMS_ITS | Data Portability ---
Author Organization [facility] Address [address] [place] [address] Care Team Providers Care Repossession Agent Name Role Phone CHRISTI KWAN Primary Care Provider VIDA GILES Welding Robot Operator PANTERA CARDENAS Carton Forming Machine Helper [phone] ILA STEARNS General Surgeon Assessment No assessment recorded. Plan of Treatment Reminders Order Date Submit Date Provider Last Modified By Organization Details Last Modified Time Details Appointments ANY 15 2024 10:30A Odalis Kwan MD Not available Not available Not available Lab lipid panel, serum 2024 025 [facility], [facility], [address], [place], [address], 12/21/2024 09:19:45 CMP, serum or plasma 2024 025 [facility], [facility] [facility], [address], [place], [address], 12/21/2024 09:19:46 CMP, serum or plasma 2023 024 [facility] ([facility]), [facility] [address], [address], 12/06/2023 17:41:44 CMP, serum or plasma 2022 023 [facility], [address], [address], [place], [address], 03/21/2023 21:07:40 lipid panel, serum 2022 023 [facility], [address], [address], [place], [address], 03/21/2023 21:07:40 Referral gyneco logist referr al 2024 025 [facility] [place], [address], [place], [address], 02/15/2025 08:37:08 podiat rist referr al 2023 024 [facility], [address], [place], [address], 07/31/2024 12:03:59 gastro entero logist referr al 2023 024 JAYDEN Cardenas MD, [address], [place], [address], 12/21/2023 13:42:34 Procedures None record ed. Surgeries None record ed. Imaging LDCT, chest, for lung cancer screen ing 2024 025 [facility] Patient Access Centralized Scheduling, Centralized Scheduling, [address] , [place], [address], 01/17/2025 10:01:39 Medication Orders omepra zole 20 mg capsul e,christa yed releas e 2024 025 [facility] [address], [address] , [place], [address], 12/20/2024 12:10:21 pravas tatin 40 mg tablet 2024 025 [facility] [address], [address] , [place], [address], 12/20/2024 12:10:16 alendr ugo 70 mg tablet 2024 025 [facility] [address], [address] , [place], [address], 12/20/2024 12:14:06 amlodi pine 10 mg tablet 2024 025 [facility] [address], [address] , [place], [address], 12/20/2024 12:10:20 atenol ol 100 mg tablet 2024 025 [facility] [address], [address] , [place], [address], 12/20/2024 12:10:20 gabape ntin 300 mg capsul e 2024 025 [facility] 2425, [address] [facility], [place], [address], 12/20/2024 12:10:21 pravas tatin 40 mg tablet 2023 024 [facility] 2425, [address] [facility], [place], [address], 06/18/2024 11:58:31 alendr ugo 70 mg tablet 2023 024 [facility] 2425, [address] [facility], [place], [address], 06/18/2024 11:58:30 gabape ntin 300 mg capsul e 2023 024 [facility] 2425, [address] [facility], [place], [address], 06/18/2024 11:58:32 pravas tatin 40 mg tablet 2023 024 [facility] 1418, [address], [address], 11/24/2023 17:21:53 omepra zole 20 mg capsul e,christa jairond releas e 2023 024 [facility] 1418, [address], [address], 11/24/2023 17:21:53 predni sone 10 mg tablet 2023 024 [facility] [address] [address], [place], [address], 12/13/2023 10:18:08 Zaangela horan cleans er 2023 024 [facility] 1418, [address], [address], 12/13/2023 11:11:37 atenol ol 100 mg tablet 2023 024 [facility] 1418, [address], [address], 11/24/2023 17:21:53 amlodi pine 10 mg tablet 2023 024 [facility] 1418, [address], [address], 11/24/2023 17:21:51 gabape ntin 300 mg capsul e 2023 024 [facility] 1418, [address], [address], 11/24/2023 17:21:54 pravas tatin 40 mg tablet 2022 023 [facility], [address], [id number], 03/21/2023 13:03:50 omepra zole 20 mg capsul e,christa cooper releas e 2022 023 J[facility], [address], [address], [place], [place], [id number], 03/21/2023 13:03:51 amlodi pine 10 mg tablet 2022 023 JAYDEN [facility], [address], [address], [place], [id number], 03/21/2023 13:03:52 atenol ol 100 mg tablet 2022 023 JAYDEN [facility], [address], [address], [place], [place], [id number], 03/21/2023 13:03:50 magnes ium oxide 400 mg (241.3 mg magnes ium) tablet 2022 023 dlebeau [facility], [address], [address], [place], [place], [id number], 06/18/2024 11:57:42 alendr ugo 70 mg tablet 2022 023 JAYDEN [facility], [address], [address], [place], [place], [id number], 03/21/2023 13:03:52 Vitami n D2 1,250 mcg (50,00 0 unit) capsul e 2022 023 JAYDEN [facility], [address], [address], [place], [place], [id number], 03/21/2023 13:03:49 gabape ntin 300 mg capsul e 2022 023 JAYDEN [facility], [address], [address], [place], [place], [id number], 03/21/2023 13:03:48 Patient TargetsNo targets recorded. Patient Instructions Encounter Date Encounter Id Patient Instructions Last Modified By Organization Details Last Modified Time 11/24/2023 [id number] Quitting Tobacco : Care Instructions [email or web address] Not available 11/24/2023 17:21:42 12/13/2023 [id number] deciding about u sing medicines to quit smoking [email or web address] Not available 12/13/2023 11:20:28 Quitting Tobacco : Care Instructions [email or web address] Not available 12/13/2023 11:20:28 learning about h igh blood pressure dlebeau Not available 12/13/2023 11:20:28 06/18/2024 [id number] deciding about u sing medicines to quit smoking [email or web address] Not available 06/18/2024 11:56:50 Quitting Tobacco : Care Instructions [email or web address] Not available 06/18/2024 11:56:50 learning about h igh blood pressure dlebeau Not available 06/18/2024 11:56:50 neuropathic pain : care instructions [email or web address] Not available 06/18/2024 11:58:24 12/20/2024 [id number] deciding about u sing medicines to quit smoking [email or web address] Not available 12/20/2024 12:10:07 Quitting Tobacco : Care Instructions [email or web address] Not available 12/20/2024 12:10:07 medicines to rodrigo id with kidney disease: care instructions [email or web address] Not available 12/20/2024 12:10:07 gastroesophageal reflux disease (GERD): care instructions [email or web address] Not available 12/20/2024 12:10:07 learning about h igh blood pressure dlebeau Not available 12/20/2024 12:10:07 Reason for Referral Carton Forming Machine Helper Referral for Screening for malignant neoplasm of colon Referring Physician: [facility], Encounter Date: 11/24/2023 Instructional Designer Referral for Plan tar wart of left foot Referring Physician: [facility], Encounter Date: 06/18/2024 Extractor Operator Referral for La bial cyst Referring Physician: [facility], Encounter Date: 12/20/2024 Results Created Date Observation Date Name Description Value Unit Range Abnormal Flag Note LastModifiedBy Organization Detail LastModifiedTime 03/21/20 23 03/21/2023 LIPID PANEL cholesterol, total 148.8 mg/dL 140.0- 200.0 Not Available [facility] [address] [facility] [address], [place], [address], 03/21/2023 21:07:40 03/21/20 23 03/21/2023 LIPID PANEL triglyceride s 118 mg/dL <=150 Not Available [facility] [address] [facility] [address], [place], [address], 03/21/2023 21:07:40 03/21/20 23 03/21/2023 LIPID PANEL HDL cholesterol 44.4 mg/dL 40.0-1 00.0 Not Available [facility] [address] [facility], [place], [address], 03/21/2023 21:07:40 03/21/20 23 03/21/2023 LIPID PANEL VLDL cholesterol margie 23.60 mg/dL 5.00-4 0.00 Not Available [facility] [address] [facility] [address], [place], [address], 03/21/2023 21:07:40 03/21/20 23 03/21/2023 LIPID PANEL LDL chol calc ([facility]) 83.1 mg/dL 0.0-99 .0 Not Available [facility] [address] [facility] [address], [place], [address], 03/21/2023 21:07:40 03/21/20 23 03/21/2023 COMP. METAB OLIC PANEL (14) glucose 80 mg/dL 65-99 ANION GP 17.0 mmol/ L N OSMOL 269.0 mOsM/ L L REFER ENCE RANGE : 275.0 -301. 0 Not Available [facility] [address] [facility] [address], [place], [address], 03/21/2023 21:07:40 03/21/20 23 03/21/2023 COMP. METAB OLIC PANEL (14) BUN 12 mg/dL 8-26 Not Available [facility] [address], [place], [address], 03/21/2023 21:07:40 03/21/20 23 03/21/2023 COMP. METAB OLIC PANEL (14) creatinine 0.88 mg/dL 0.50-1 .40 Not Available [facility] [address], [place], [address], 03/21/2023 21:07:40 03/21/20 23 03/21/2023 COMP. METAB OLIC PANEL (14) eGFR 71 mL/mi n/1.7 3 >=60 Not Available [facility] [address], [place], [address], 03/21/2023 21:07:40 03/21/20 23 03/21/2023 COMP. METAB OLIC PANEL (14) BUN/creatini ne ratio 14.1 Not Available [facility] [address], [place], [address], 03/21/2023 21:07:40 03/21/20 23 03/21/2023 COMP. METAB OLIC PANEL (14) sodium 135.0 mmol/ L 136.0- 144.0 below low normal Not Available [facility] [address], [place], [address], 03/21/2023 21:07:40 03/21/20 23 03/21/2023 COMP. METAB OLIC PANEL (14) potassium 5.1 mmol/ L 3.5-5. 3 Not Available [facility] [address] [facility] [address], [place], [address], 03/21/2023 21:07:40 03/21/20 23 03/21/2023 COMP. METAB OLIC PANEL (14) chloride 94 mmol/ l 101-11 1 below low normal Not Available [facility] [address], [place], [address], 03/21/2023 21:07:40 03/21/20 23 03/21/2023 COMP. METAB OLIC PANEL (14) carbon dioxide, total 29.0 mmol/ L 21.0-3 2.0 Not Available [facility] [address], [place], [address], 03/21/2023 21:07:40 03/21/20 23 03/21/2023 COMP. METAB OLIC PANEL (14) calcium 9.6 mg/dL 8.2-10 .0 Not Available [facility] [address], [place], [address], 03/21/2023 21:07:40 03/21/20 23 03/21/2023 COMP. METAB OLIC PANEL (14) protein, total 7.2 g/dL 6.7-8. 2 Not Available [facility] [address], [place], [address], 03/21/2023 21:07:40 03/21/20 23 03/21/2023 COMP. METAB OLIC PANEL (14) albumin 4.4 g/dL 3.5-5. 5 Not Available [facility] [address], [place], [address], 03/21/2023 21:07:40 03/21/20 23 03/21/2023 COMP. METAB OLIC PANEL (14) globulin, total 2.8 g/dL 1.5-4. 5 Not Available [facility] [address], [place], [address], 03/21/2023 21:07:40 03/21/20 23 03/21/2023 COMP. METAB OLIC PANEL (14) A/G ratio 1.6 Not Available [facility] [address] [facility] [address], [place], [address], 03/21/2023 21:07:40 03/21/20 23 03/21/2023 COMP. METAB OLIC PANEL (14) bilirubin, total 0.4 mg/dL 0.0-1. 2 Not Available [facility] [address], [place], [address], 03/21/2023 21:07:40 03/21/20 23 03/21/2023 COMP. METAB OLIC PANEL (14) alkaline phosphatase 45.6 IU/L 42.0-1 21.0 Not Available [facility] [address] [facility] [address], [place], [address], 03/21/2023 21:07:40 03/21/20 23 03/21/2023 COMP. METAB OLIC PANEL (14) AST (SGOT) 17.8 U/L 10.0-4 2.0 Not Available [facility] [address], [place], [address], 03/21/2023 21:07:40 03/21/20 23 03/21/2023 COMP. METAB OLIC PANEL (14) ALT (SGPT) 9.8 U/L 10.0-6 0.0 below low normal Not Available [facility] [address], [place], [address], 03/21/2023 21:07:40 03/21/20 23 03/21/2023 CARDI OVASC ULAR REPOR T interpretati on Note Suppl ement al repor t is avail able. Not Available [facility] [address] [facility] [address], [place], [address], 03/21/2023 21:07:41 03/21/20 23 03/21/2023 CARDI OVASC ULAR REPOR T pdf . Not Available [facility] [address], [place], [address], 03/21/2023 21:07:41 12/21/19 25 12/21/2024 LIPID PANEL cholesterol, total 139 mg/dL 100-19 9 Not Available [facility] ([facility]) [address] [facility], [place], [address], 12/21/2024 09:19:44 12/21/19 25 12/21/2024 LIPID PANEL triglyceride s 91 mg/dL 0-149 Not Available [facility] ([facility]) [address] [place], [address], 12/21/2024 09:19:44 12/21/19 25 12/21/2024 LIPID PANEL HDL cholesterol 40 mg/dL >39 Not Available [facility] ([facility]) [address] [place], [address], 12/21/2024 09:19:44 12/21/19 25 12/21/2024 LIPID PANEL VLDL cholesterol margie 17 mg/dL 5-40 Not Available [facility] ([facility]) [address] [place], [address], 12/21/2024 09:19:44 12/21/19 25 12/21/2024 LIPID PANEL LDL chol calc ([facility]) 82 mg/dL 0-99 Not Available [facility] ([facility]) [address] [place], [address], 12/21/2024 09:19:44 12/21/19 25 12/21/2024 COMP. METAB OLIC PANEL (14) glucose 90 mg/dL 70-99 Not Available [facility] ([facility]) [address] [place], [address], 12/21/2024 09:19:46 12/21/1912/21/2024 COMP. METAB OLIC PANEL (14) BUN 21 mg/dL 8-27 Not Available [facility] ([facility]) [address] [place], [address], 12/21/2024 09:19:46 12/21/19 25 12/21/2024 COMP. METAB OLIC PANEL (14) creatinine 0.91 mg/dL 0.57-1 .00 Not Available [facility] ([facility]) [address] [place], [address], 12/21/2024 09:19:46 12/21/19 25 12/21/2024 COMP. METAB OLIC PANEL (14) eGFR 67 mL/mi n/1.7 3 >59 Not Available [facility] ([facility]) [address] [place], [address], 12/21/2024 09:19:46 12/21/19 25 12/21/2024 COMP. METAB OLIC PANEL (14) BUN/creatini ne ratio 23 12-28 Not Available [facility] ([facility]) [address] [place], [address], 12/21/2024 09:19:46 12/21/19 25 12/21/2024 COMP. METAB OLIC PANEL (14) sodium 140 mmol/ L 134-14 4 Not Available [facility] ([facility]) [address] [place], [address], 12/21/2024 09:19:46 12/21/19 25 12/21/2024 COMP. METAB OLIC PANEL (14) potassium 4.6 mmol/ L 3.5-5. 2 Not Available [facility] ([facility]) [address] [place], [address], 12/21/2024 09:19:46 12/21/19 25 12/21/2024 COMP. METAB OLIC PANEL (14) chloride 100 mmol/ L 96-106 Not Available [facility] ([facility]) [address] [place], [address], 12/21/2024 09:19:46 12/21/19 25 12/21/2024 COMP. METAB OLIC PANEL (14) carbon dioxide, total 27 mmol/ L 20-29 Not Available [facility] ([facility]) [address] [place], [address], 12/21/2024 09:19:46 12/21/19 25 12/21/2024 COMP. METAB OLIC PANEL (14) calcium 8.8 mg/dL 8.7-10 .3 Not Available [facility] ([facility]) [address] [facility], [place], [address], 12/21/2024 09:19:46 12/21/19 25 12/21/2024 COMP. METAB OLIC PANEL (14) protein, total 6.7 g/dL 6.0-8. 5 Not Available [facility] ([facility]) [address] [facility], [place], [address], 12/21/2024 09:19:46 12/21/19 25 12/21/2024 COMP. METAB OLIC PANEL (14) albumin 4.2 g/dL 3.8-4. 8 Not Available [facility] ([facility]) [address] [facility], [place], [address], 12/21/2024 09:19:46 12/21/19 25 12/21/2024 COMP. METAB OLIC PANEL (14) globulin, total 2.5 g/dL 1.5-4. 5 Not Available [facility] ([facility]) [address] [facility] [place], [address], 12/21/2024 09:19:46 12/21/19 25 12/21/2024 COMP. METAB OLIC PANEL (14) bilirubin, total 0.4 mg/dL 0.0-1. 2 Not Available [facility] ([facility]) [address] [facility] [place], [address], 12/21/2024 09:19:46 12/21/19 25 12/21/2024 COMP. METAB OLIC PANEL (14) alkaline phosphatase 52 IU/L 44-121 Not Available [facility] ([facility]) [address] [facility], [place], [address], 12/21/2024 09:19:46 12/21/19 25 12/21/2024 COMP. METAB OLIC PANEL (14) AST (SGOT) 19 IU/L 0-40 Not Available [facility] ([facility]) [address] [facility], [place], [address], 12/21/2024 09:19:46 12/21/19 25 12/21/2024 COMP. METAB OLIC PANEL (14) ALT (SGPT) 10 IU/L 0-32 Not Available [facility] ([facility]) [address] [facility], [place], [address], 12/21/2024 09:19:46 06/11/20 24 06/11/2024 MAMMO , scree chiquita, bilat eral No observ ation record ed. [facility] [address], [address], 06/11/2024 17:15:47 01/18/20 25 01/05/2025 LDCT, chest , for lung cance r scree chiquita No observ ation record ed. [facility] [address] [place], [address], 01/20/2025 21:47:43 Result Notes None recorded. Problems Name Problem SNOMED Code Status Onset Date Resolution Date Notes Provider Name and Address Organization Details Recorded Time Bereavemen t 03546673 Active 2017 Christi Kwan MD Attn: Accounting ,[address] [facility], [place], [address] , [facility] 4 11:14:45 Insomnia 396692152 Active 2017 Not Available [facility] 4 08:43:42 Osteopenia 815559634 Active 2017 Not Available [facility] 4 08:43:42 Tobacco dependence syndrome 50023959 Active Not Available [facility] 4 08:43:42 Essential hypertensi on 85271137 Active Not Available [facility] 4 08:43:42 Hyperchole sterolemia 23522488 Active Not Available [facility] 4 08:43:42 Neuropathy 621161457 Active Not Available [facility] 4 08:43:42 Pain of multiple joints 23750815 Active Not Available [facility] 4 08:43:42 Abscess of skin and/or subcutaneo tissue 87500986 Active Not Available [facility] 4 08:43:42 Kidney disease 90607722 Completed 11/03/2016 Christi Kwan MD Attn: Accounting ,[address] [place], [address] , [facility] 7 18:00:10 Gastroesop hageal reflux disease 531900446 Active Not Available [facility] 4 08:43:42 Chronic kidney disease stage 3 983124410 Active Not Available [facility] 4 08:43:42 Actinic keratosis 233552756 Active Not Available [facility] 4 08:43:42 Notes:Some problems listed i n Documents: #[id number], #[id number] could not be added to this patient's chart. Please review these documents and add these problems to the patient's chart manually as needed. Problem Notes None recorded. Procedures Surgical History Date Name Laterality Status Provider Name and Address Organization Details Recorded Time 01/22/20 16 I&D completed Christi Kwan MD Attn: Accounting,[address] [place], [place], [address] [place] [address] 01/22/2016 15:37:47 open reduction of dislocation of ankle completed Kole Ayala RN [facility] 08/11/2018 10:01:06 Breast Surgery completed Az Raman MA [facility] 12/15/2021 10:19:23 Tonsillectomy completed Arabella Pickard MA [facility] 12/05/2014 11:46:05 Imaging Results None recorded. Procedure Notes None recorded. Medical Equipment None Reported. Allergies Allergen ID Allergen Name Allergen Category Reaction Reaction Severity Criticality Documentation Date Start Date Code Code System Note Provider Name and Address Organization Details Recorded Time 06676 Non-stero idal anti-infl ammatory agent (product) medicatio n other Not available Not available 02/04/2016 85715 005 SNOMED contr aindi cated in ckd Christi Kwan MD Attn: Accountin g,[address], [place], [address], [facility] 6 11:59:48 Medications Name Sig Start Date Stop Date Status Note LastModified by Organization Details LastModified Time amoxicilli n 500 mg capsule Take 1 capsule every 8 hours by oral route for 10 days. 06/16 completed Not Available Not Available Not Available prednisone 10 mg tablet TAKE 4 TABLETS BY MOUTH EACH MORNING FOR 3 DAYS, THEN 2 TABLETS EACH MORNING FOR 3 DAYS, THEN 1 TABLET EACH MORNING FOR 3 DAYS 12/12 completed Not Available Not Available Not Available pravastati n 40 mg tablet TAKE ONE TABLET BY MOUTH AT BEDTIME 2024 active Not Available Not Available Not Avai lable ofloxacin 0.3 % eye drops 12/13 completed Not Available Not Available Not Available atenolol 100 mg tablet Take 1 tablet every day by oral route for 90 days. 2024 active Not Available Not Available Not Avai lable hydrocodon e 5 mg-acetami nophen 325 mg tablet Take 1 tablet every 6 hours by oral route as needed. active Not Available Not Available No t Available alendronat e 70 mg tablet Take 1 tab by mouth every week 2024 active Not Available Not Available Not Avai lable sulfametho xazole 800 mg-trimeth oprim 160 mg tablet Take 1 tablet every 12 hours by oral route for 10 days. active Not Available Not Available No t Available tramadol 50 mg tablet Take 1 tablet 3 times a day by oral route as needed. 08/11 completed doesnt help Not Available Not Available Not Available amitriptyl ine 50 mg tablet 03/24 completed Not Available Not Available Not Available triamcinol one acetonide 0.1 % topical cream 06/18 completed Not Available Not Available Not Available ketorolac 0.5 % eye drops 12/13 completed Not Available Not Available Not Available famotidine 20 mg tablet TAKE ONE TABLET BY MOUTH TWICE DAILY NEEDED 03/24 completed Not Available Not Available Not Available prednisolo ne acetate 1 % eye drops,susp ension 12/13 completed Not Available Not Available Not Available magnesium oxide 400 mg (241.3 mg magnesium) tablet Take 2 tab by mouth 3 times daily 06/18 completed Not Available Not Available Not Available diazepam 2 mg tablet TAKE 1 TABLET BY MOUTH 1/2 HOUR PRIOR TO PROCEDUR E 03/21 completed Not Available Not Available Not Available amlodipine 10 mg tablet Take 1 tablet by mouth once daily 2024 active Not Available Not Available Not Avai lable cyanocobal sierra (vit B-12) 1,000 mcg/mL injection solution 06/14 completed Not Available Not Available Not Available gabapentin 300 mg capsule TAKE 3 CAPSULES BY MOUTH THREE TIMES DAILY active Not Available Not Available No t Available omeprazole 20 mg capsule,de layed release take 1 capsule by mouth daily as needed 2024 active Not Available Not Available Not Avai lable ammonium lactate 12 % topical cream 12/15 completed Not Available Not Available Not Available hydrochlor othiazide 25 mg tablet TAKE 1 TABLET BY MOUTH ONCE DAILY active Not Available Not Available No t Available mirtazapin e 15 mg tablet TAKE 1 TABLET BY MOUTH AT BEDTIME 03/21 completed Not Available Not Available Not Available ergocalcif christine (vitamin D2) 1,250 mcg (50,000 unit) capsule TAKE 1 CAPSULE BY MOUTH EVERY TUESDAY active Not Available Not Available No t Available naproxen 500 mg tablet Take 1 tablet twice a day by oral route as needed. 02/03 completed Not Available Not Available Not Available oxycodone 5 mg tablet TAKE 1 TABLET BY MOUTH EVERY 6 HOURS NEEDED FOR PAIN 12/15 completed Not Available Not Available Not Available mirtazapin e 7.5 mg tablet Take 1 tablet every day by oral route at bedtime. 08/11 completed Not Available Not Available Not Available Zanfel topical cleanser 1.Wet the affected area. 2. Squeeze 1 and 1/2 inches (no less; see ruler below) of Zanfel onto one palm. (Product will not work if less than 1 and 1/2 inches is used.) 3. Wet and rub both hands together for 10 seconds, working the product into a paste. (This will activate the ingredie nts. Do not bypass or modify this step.) 4. Rub both hands (up to 3 minutes, if needed) on the affected area, working Zanfel into the skin until there is no sign of itching (15 seconds is typical for mild to moderate reaction s). 5. Rinse area thorough ly. If the itch returns which could be several hours later), rewash, followin g steps 1 through 5, and read the Q&A insert found in the package. 12/12 completed Not Available Not Available Not Available omeprazole 20 mg tablet,del ayed release 12/14 completed Not Available Not Available Not Available magnesium 400 mg (as magnesium oxide) tablet Take 2 tablets 3 times a day by oral route. 10/30 completed Not Available Not Available Not Available Vitals Date Recorded Body height Body mass index (BMI) Body weight Respiratory rate Body temperature Oxygen saturation Oxygen saturation in Arterial blood by Pulse oximetry Heart rate Systolic blood pressure Diastolic blood pressure Provider Name and Address Organization Details Last Updated DateTime 4 167.64 cm 22.6 kg/m2 64599.3 3 g 18 /min 97.7 [degF] 97 % 97 % 60 /min 137 mm[Hg] 81 mm[Hg] Kia Fultonoa [facility] 4 16:52:14 Date Recorded Systolic blood pressure Diastolic blood pressure Provider Name and Address Organization Details Last Updated DateTime 12/13/2023 130 mm[Hg] 60 mm[Hg] Christi Kwan MD Attn: Accounting[address] [place], [address], [facility] 12/13/2023 11:18:59 Date Recorded Body height Body mass index (BMI) Body weight Respiratory rate Body temperature Heart rate Oxygen saturation Oxygen saturation in Arterial blood by Pulse oximetry Systolic blood pressure Diastolic blood pressure Provider Name and Address Organization Details Last Updated DateTime 4 167.64 cm 22.4 kg/m2 56200.5 5 g 16 /min 98.1 [degF] 54 /min 98 % 98 % 160 mm[Hg] 83 mm[Hg] Az Raman MA [facility] 4 10:20:51 Date Recorded Systolic blood pressure Diastolic blood pressure Provider Name and Address Organization Details Last Updated DateTime 12/20/2024 139 mm[Hg] 76 mm[Hg] Christi Kwan MD Attn: Accounting[address] [facility], [place], [address], [facility] 12/20/2024 13:53:39 Date Recorded Body height Body mass index (BMI) Body weight Oxygen saturation Oxygen saturation in Arterial blood by Pulse oximetry Heart rate Body temperature Provider Name and Address Organization Details Last Updated DateTime 5 167.64 cm 22.9 kg/m2 28434.1 2 g 96 % 96 % 54 /min 98 [degF] Madi Soto MA [facility] 5 11:29:33 Date Recorded Body height Body mass index (BMI) Body weight Oxygen saturation Oxygen saturation in Arterial blood by Pulse oximetry Heart rate Respiratory rate Body temperature Systolic blood pressure Diastolic blood pressure Provider Name and Address Organization Details Last Updated DateTime 3 167.64 cm 20.6 kg/m2 98699.0 3 g 100 % 100 % 59 /min 18 /min 97.8 [degF] 134 mm[Hg] 84 mm[Hg] Yeni Bhatia MA [facility] 3 12:44:14 Date Recorded Body height Body temperature Oxygen saturation Oxygen saturation in Arterial blood by Pulse oximetry Heart rate Respiratory rate Body mass index (BMI) Body weight Systolic blood pressure Diastolic blood pressure Provider Name and Address Organization Details Last Updated DateTime 4 167.64 cm 97.8 [degF] 97 % 97 % 51 /min 16 /min 22.4 kg/m2 52749.6 2 g 129 mm[Hg] 76 mm[Hg] Gabbie Webb LPN [facility] 4 11:28:06 Social History Question Answer Notes LastModified by Organizat ion Details LastModified Time Tobacco Smoking Status Current Every Day Smoker Arabella Pickard MA null, [facility] 12/05/2014 11:46:05 What Is Your Level Of Caffeine Consumption? Moderate Information not available 08/11/2018 What Type Of Diet Are You Following? REGULAR Information not available 08/11/2018 Which Illicit Or Recreational Drugs Have You Used? None Information not available 08/11/2018 Education 12 Information n ot available 08/11/2018 Hard Of Hearing Or Deaf In One Or Both Ears? No Information not available 08/11/2018 Legally Blind In One Or Both Eyes? No Information no t available 08/11/2018 Live Alone Or With Others? Alone Information not available 08/11/2018 What Was The Date Of Your Most Recent Tobacco Screening? 06/18/2024 Information not available 06/18/2024 How Many Children Do You Have? 1 Information not available 08/11/2018 Seat Belts Used Routinely Yes Information not available 08/11/2018 At What Age Did You Start Smoking Tobacco? 19 [email or web address] Information not available 12/05/2014 How Much Tobacco Do You Smoke? 1 PPD [email or web address] Information not available 10/30/2019 General Stress Level Medium Information not available 08/11/2018 Do You Use Sunscreen Routinely? No Information not available 08/11/2018 Has Tobacco Cessation Counseling Been Provided? Yes [email or web address] Information not available 12/13/2023 On What Date Was Tobacco Cessation Counseling Provided? 06/18/2024 Information not available 06/18/2024 Sex: Female Functional Status Question Answer Note LastModified by Organizat ion Details LastModified Time Do you use any illicit or recreational drugs? No Information not available 06/18/2024 Do you or have you ever used any other forms of tobacco or nicotine? No [email or web address] Information not available 03/21/2023 What is your level of alcohol consumption? Occasional Information not available 08/11/2018 Are you currently employed? No Information not available 08/11/2018 Are you able to care for yourself? Yes Information n ot available 08/11/2018 What is your exercise level? None Information not available 08/11/2018 Mental Status None recorded. Family History Relationship Description Onset Age of this Age Resolved Age Notes LastModified by Organization Details LastModified Time Mother Hypertensive disorder [email or web address] Not available 2015 15:07:00 Mother Migraine [email or web address] Not available 01/22/2016 15:07:00 Mother Alzheimer's disease [email or web address] Not available 01/2020 10:06:57 Father Alcoholism [email or web address] Not availabl e 01/22/2016 15:07:00 Father Hypertensive disorder [email or web address] Not available 2015 15:07:00 Brother Hypertensive disorder [email or web address] Not available 2015 15:07:00 Medical History Condition Response Skin Problems Y Acid Reflux (GERD) Y High Blood Pressure Y Allergies Y Gynecological HistoryNo gynecological history recorded. Obstetrics History GPAL:G 0 P 0 0 0 0 Immunizations Vaccine Type Date Status Note Provider Nam e and Address Organization Details Recorded Time zoster live 5 completed Not Available [facility] 10/09/2023 08:43:43 Tdap 5 completed Not Available [facility] 10/09/2023 08:43:43 Influenza, split virus, quadrivalent, preservative 5 completed Not Available [facility], [facility] 10/09/2023 08:43:43 Influenza, adjuvanted, quadrivalent, PF 2 completed Not Available [facility], [facility] 10/09/2023 08:43:43 COVID-19, mRNA, LNP-S, PF, 100 mcg/0.5mL dose or 50 mcg/0.25mL dose 1 completed Not Available [facility], [facility] 10/09/2023 08:43:43 COVID-19, mRNA, LNP-S, PF, 100 mcg/0.5mL dose or 50 mcg/0.25mL dose 1 completed Not Available [facility] 10/09/2023 08:43:43 COVID-19, mRNA, LNP-S, PF, 100 mcg/0.5mL dose or 50 mcg/0.25mL dose 2 completed Not Available [facility], [facility] 10/09/2023 08:43:43 COVID-19, mRNA, LNP-S, PF, 100 mcg/0.5mL dose or 50 mcg/0.25mL dose 1 completed Not Available [facility] 10/09/2023 08:43:43 COVID-19, mRNA, LNP-S, bivalent, PF, 30 mcg/0.3 mL dose 2 completed Not Available [facility] 10/09/2023 08:43:43 influenza, unspecified formulation 1 completed Not Available [facility] 10/09/2023 08:43:43 influenza, unspecified formulation 8 completed Not Available [facility] 10/09/2023 08:43:43 influenza, split (incl. purified surface antigen) 0 completed Not Available [facility] 10/09/2023 08:43:43 Influenza, split virus, quadrivalent, PF 1 completed Not Available [facility] 10/09/2023 08:43:43 Influenza, high-dose, quadrivalent, PF 3 completed Christi Kwan MD Attn: Accounting[address] [place], [address], [place] [facility] 12/13/2023 11:03:46 COVID-19, mRNA, LNP-S, PF, prince-sucrose, 30 mcg/0.3 mL 3 completed Christi Kwan MD Attn: Accounting[address] [place], [address], [place] [facility] 12/13/2023 11:03:46 Influenza, split virus, quadrivalent, preservative 7 completed Not Available [facility] 09/29/2019 02:34:47 Influenza, split virus, quadrivalent, preservative 8 completed Not Available [facility] 09/29/2019 02:47:59 pneumococcal polysaccharide PPV23 9 completed Not Available [facility] 09/29/2019 02:41:28 Influenza, split virus, quadrivalent, PF 9 completed Not Available [facility] 09/29/2019 02:38:14 Influenza, high-dose, quadrivalent, PF 0 completed PEPPER Hinkle, [place] [facility] 06/16/2020 11:41:46 Pneumococcal conjugate PCV20, polysaccharide QXD417 conjugate, adjuvant, PF 3 completed PEPPER R[place], [place] [facility] 03/21/2023 17:32:20 Influenza, high-dose, trivalent, PF 4 completed Az Raman [place] null, [place] [facility] 06/18/2024 12:07:57 Past Encounters Encounter ID Performer Location Encounter Start Date Encounter Closed Date Diagnosis/Indication Diagnosis SNOMED-CT Code Diagnosis ICD10 Code Diagnosis Note [id number] MD Concha Amaya [facility] ([facility]) [address] [place] [id number] 12/05/2014 10:53:34 12/07/2014 00:01:39 Tobacco dependence syndrome 96619972 Essential hypertension 40187634 Hypercholesterolemia 82928938 Adult heal th examination 931132740 Neuropathy 497346354 [id number] MD Concha Amaya [facility] ([facility]) [address] [place] [address] 8 06/12/2015 15:01:27 06/13/2015 11:23:55 Essential hypertension 24515868 I10 Neuropathy 767397947 G62 .9 Hypercholesterolemia 136 26379 E78.0 Adult heal th examination 228174144 Z00.01 [id number] MD Concha Amaya [facility] ([facility]) [address] [place] [id number] 8 08/25/2015 15:35:47 08/27/2015 11:24:33 Pain of multiple joints 44240083 M25.50 [id number] MD Concha Amaya [facility] ([facility]) [address] [place] [id number] 8 01/22/2016 13:53:36 01/28/2016 14:24:18 Abscess of skin and/or subcutaneous tissue 06286959 L02.91 Hypercholesterolemia 136 71149 E78.0 Neuropathy 546708779 G62 .9 [id number] MD Concha Amaya [facility] ([facility]) [address] [place] [address] 8 02/02/2016 13:31:26 02/02/2016 16:39:26 [id number] MD [facility] ([facility] [address] [place] [id number] 8 03/24/2017 10:52:33 03/30/2017 13:45:22 Gastroesophageal reflux disease 568538944 K21.9 Neuropathy 311730959 G62 .9 Essential hypertension 16431891 I10 Hypercholesterolemia 136 74588 E78.00 Tobacco de pendence syndrome 37191988 F17.413 [id number] Christi Kwan MD [facility] ([facility]) [address] [place] [address] 8 04/01/2017 11:14:40 04/04/2017 16:49:04 [id number] Christi Kwan MD [facility] ([facility]) [address] [place] [address] 8 07/20/2017 15:19:46 07/29/2017 12:44:51 Administration of influenza vaccine 43363565 Z23 [id number] Christi Kwan MD [facility] ([facility]) [address] [place] [address] 8 12/14/2017 09:31:01 12/29/2017 12:31:44 Essential hypertension 69268128 I10 Hypercholesterolemia 136 05104 E78.00 Tobacco de pendence syndrome 04547662 F17.200 Neuropathy 991336222 G62 .9 Gastroesop hageal reflux disease 943142185 K21.9 [id number] Christi Kwan MD [facility] ([facility]) [address] [place] [address] 8 12/19/2017 10:59:12 12/29/2017 15:46:43 Gynecologic examination 85506298 Z01.781 [id number] Christi Kwan MD [facility] ([facility]) [address] [place] [address] 8 06/14/2018 10:41:04 06/15/2018 13:15:06 Chronic kidney disease stage 3 914622372 N18.3 Essential hypertension 82590122 I10 Reactive d epression (situational) 21960758 F32.9 [id number] Christi Kwan MD [facility]) [address] [place] [address] 8 07/12/2018 09:48:48 07/12/2018 16:29:18 Neuropathy 194154700 G62.9 Vitamin D deficiency 347 39848 E55.9 Hypomagnesemia 373235365 E83.42 Bereavement 98573263 Z63 .4 [id number] Christi Kwan MD [facility] ([facility]) [address] [place] [address] 8 08/11/2018 09:35:11 08/11/2018 14:42:17 Insomnia 019951488 G47.00 Tobacco de pendence syndrome 39710903 F17.200 Thoracic back pain 75438 8004 M54.6 Essential hypertension 22460832 I10 [id number] Christi Kwan MD [facility] ([facility]) [address] [place] [address] 8 08/21/2018 14:30:43 08/23/2018 16:12:49 Thoracic back pain 426675484 M54.6 Chronic ki dney disease stage 3 671154609 N18.3 [id number] Christi Kwan MD [facility] ([facility]) [address] [place] [address] 8 12/13/2018 11:35:15 12/14/2018 11:35:36 Essential hypertension 77085729 I10 Gastroesop hageal reflux disease 594275893 K21.9 Tobacco de pendence syndrome 99147612 F17.569 [id number] Christi Kwan MD [facility] ([facility]) [address] [place] [address] 8 07/02/2019 11:15:04 07/03/2019 09:15:07 Essential hypertension 99654529 I10 Gastroesop hageal reflux disease 168959630 K21.9 Hypercholesterolemia 136 48691 E78.00 Administra tion of influenza vaccine 60006522 Z23 [id number] MD Concha Amaya [facility] ([facility]) [address] [place] [address] 8 07/30/2019 10:42:25 07/31/2019 10:42:52 Essential hypertension 42541852 I10 Tobacco de pendence syndrome 37397987 F17.200 Anxiety 56827269 F41.9 [id number] MD Concha Amaya [facility] ([facility]) [address] [place] [address] 8 10/30/2019 10:40:10 10/30/2019 15:05:50 Essential hypertension 69112407 I10 Chronic ki dney disease stage 3 052736479 N18.3 Hypercholesterolemia 136 51665 E78.00 Gastroesop hageal reflux disease 495080334 K21.9 Tobacco de pendence syndrome 25741041 F17.200 Anxiety 38902791 F41.9 Neuropathy 450809326 G62 .9 Osteopenia 688715587 M85 .80 Insomnia 310449922 G47.0 0 [id number] Christi Kwan MD [facility] ([facility]) [address] [place], [place] [phone] 8 11/26/2019 09:46:33 11/26/2019 12:59:30 [id number] Christi Kwan MD [facility] ([facility]) [address] [place], [place] [phone] 8 01/16/2020 10:04:29 01/18/2020 05:01:05 Infection of tooth 512096008 K04.7 [id number] Christi Kwan MD [facility] ([facility]) [address] [place] [address] 06/16/2020 09:30:36 06/19/2020 17:36:35 Essential hypertension 07846012 I10 Tobacco de pendence syndrome 83182631 F17.167 [id number] Christi Kwan MD [facility] ([facility]) [address] [place], [place] [id number] 8 12/18/2020 09:47:35 12/23/2020 13:10:22 Essential hypertension 42261921 I10 Hypercholesterolemia 136 64741 E78.00 Tobacco de pendence syndrome 32329091 F17.296 [id number] Christi Kwan MD [facility] ([facility]) [address] [place] [id number] 8 12/15/2021 10:03:18 12/16/2021 11:29:59 Essential hypertension 76827000 I10 Neuropathy 087234834 G62 .9 Insomnia 782658468 G47.0 0 Gastroesop hageal reflux disease 971580582 K21.9 Hypercholesterolemia 136 32961 E78.00 Tobacco de pendence syndrome 94547409 F17.200 Pain of mu ltiple joints 92507251 M25.50 Osteopenia 104643376 M85 .80 Preventive dental procedure 39496281 Z01.20 [id number] Christi Kwan MD [facility] ([facility]) [address] [place] [id number] 8 03/21/2023 11:41:49 03/22/2023 11:19:46 Osteopenia 900778121 M85.80 Essential hypertension 74123676 I10 Neuropathy 697420348 G62 .9 Gastroesop hageal reflux disease 240870066 K21.9 Hypercholesterolemia 136 65826 E78.00 Chronic hyponatremia 503 44435 E87.1 [id number] Christi Kwan MD [facility] ([facility]) [address] [place] [address] 8 11/24/2023 16:43:14 11/28/2023 12:15:33 Smoker 61326553 F17.200 Essential hypertension 45104676 I10 Pt blood pressure is 137/81 in the office tosaravananaDisclynda tavera with patient the goal of having a blood pressure of <140/90.Pt to monitor blood pressure at home and notify of >140/90 or <90/60.Edu cated on the risks of a heart attack, stroke, kidney damage, or additional issues if blood pressure is outside of recommende d ranges. Pt verbalized understand ing. Hypercholesterolemia 136 94183 E78.00 Gastroesop hageal reflux disease 545602900 K21.9 Neuropathy 071988044 G62 .9 Discussed with patient the following: -Goals include achieving a normal bodyweight and attaining individual ized glycemic, blood pressure, and lipid goals along with 150 minutes of moderate-t o-vigorous aerobic activity and two to three sessions of resistance training weekly. Exercise is associated with improvemen ts in function, nerve conduction velocities , and glycemic control in patients. Screening for malignant neoplasm of colon 106413369 Z12.11 Contact dermatitis 02792 004 L25.9 Plan of care:-Util ize prednisone until completion -Utilize Zanfel-Not leonard if worsening of symptoms and go to ER if in eyes or mouth or if additional symptoms occur. [id number] Christi Kwan MD [facility] ([facility]) [address] [place] [address] 12/13/2023 10:11:34 12/14/2023 10:05:12 Essential hypertension 82349371 I10 Tobacco de pendence syndrome 01174027 F17.869 [id number] Christi Kwan MD [facility] ([facility]) [address] [place] [address] 06/18/2024 11:01:16 06/19/2024 13:32:09 Plantar wart of left foot 3936603894 2770188 B07.0 Essential hypertension 12277132 I10 Tobacco de pendence syndrome 27040006 F17.200 Osteopenia 823909065 M85 .80 Hypercholesterolemia 136 03750 E78.00 Neuropathy 865465406 G62 .9 [id number] Christi Kwan MD [facility] ([facility]) [address] [place] [address] 12/20/2024 10:54:04 12/24/2024 10:11:04 Essential hypertension 77605484 I10 Hypercholesterolemia 136 31517 E78.00 Tobacco de pendence syndrome 11686135 F17.200 Chronic ki dney disease stage 3 029780731 N18.30 Gastroesop hageal reflux disease 634055265 K21.9 Osteopenia 604918454 M85 .80 Neuropathy 085479609 G62 .9 Adult heal th examination 959629698 Z00.01 Labial cyst 131591014 N9 0.7 Health Concerns Section Related Observation LastModified by Organization Detai ls LastModified Time None Recorded Concern Status LastModified by Organization Details LastModified Time None Recorded Advance Directives Directive None Recorded Payers Insurance Date Sequence Insurance Name Policy Number Policy Zapien Covered Member ID Zapien Member ID Guarantor Name 12/24/2024 1 [facility] (MEDICARE REPLACEMENT/AD VANTAGE - HMO) [id number] Odalis Contreras [id number] Odalis eRa 06/18/2024 1 [facility] - [facility] PRIOR TO 2021 (MEDICAID REPLACEMENT - HMO) Odalis Contreras [id number] Odalis Rea 06/18/2024 2 [place] WHEN MED[place]ARE OR MEDICARE REPLACEMENT PRIMARY) XXX Odalis Pinedaner [id number] Odalis Lilianapasqualeski 12/17/2024 [place] [facility] Odalis Contreras [id number] Odalis Lilianapasqualeradhai 06/18/2024 2 [place] [facility] Odalis Horan Ben [id number] Odalis Lilianapasqualeradhai 06/18/2024 2 [place] Odalis Contreras [id number] Odalis Lilianapasqualeradhai 06/18/2024 2 [facility] PRIOR TO 03/12/2021 (MEDICAID REPLACEMENT - HMO) Odalis Horan Ben [id number] Odalis Lilianapasqualeradhai 06/18/2024 1 [facility] - DOS PRIOR TO 2021 (MEDICAID REPLACEMENT - HMO) Odalis Horan Ben [id number] Odalis Lilianapasqualeradhai 06/18/2024 2 [place] [facility] Odalis Ben [id number] Odalis Zephuongradhai 06/18/2024 1 [place] [facility] Odalis Pinedaner [id number] Odalis Chatterjeeradhai Notes Date Note Type Note Provider Name and Address Organization Details Recorded Time 03/21/2023 text/html Patient is here for htn and neuropathy Christi Kwan MD Attn: Accounting[address] [place], [address], [facility] 03/21/2023 17:30:39 11/24/2023 text/html The patient presents to the office for a routine office visit. She has a hx of HTN, hyperlipidemia, GERD, and neuropathy. She endorses a skin rash on her face that started after she was out in her yard pulling weeds. She denies additional symptoms or concerns. ALLISON MATTHEWS NP Attn: [address]ing[address] [place], [address], [facility] 11/24/2023 20:53:14 12/13/2023 text/html Here for follow up on labs and htn. Christi Kwan MD Attn: Accounting,[address], [place], [address], [facility] 12/13/2023 11:20:33 06/18/2024 text/html Patient complain s of painful callous to left forefoot plantar surface Christi Kwan MD Attn: Accounting[address] [facility], [place], [address], [facility] 06/18/2024 12:50:33 12/20/2024 text/html Patient is here for annual exam, just saw her acid mixer who recommended referral to ob/gyn nurse for labial cyst. Christi Kwan MD Attn: Accounting[address] [facility], [place], [address], [facility] 12/20/2024 13:53:55 OBGyn Episode No OBEpisode recorded.
--- OUTSIDE RECORDS SUMMARY | 2025-02-27 01:00 | XMS_ITS | Encounter Summary ---
Author Organization [facility] Address [address] [place] [address] Care Team Providers Care Sheet Turner Name Role Phone Unavailable Primary Care Provider Unavailabl e Encounter Details Date Type Department Care Team (Late st Contact Info) Description 01/23/2025 Lab Requisition [facility] - DermPath Lab [address] [place] [id number] Raz Delgado MD [address] [place] [address] Social History Tobacco Use Types Packs/Day Years Used Date Smoking Tobacco: Never Assessed Comments Unknown Sex and Gender Information Value Date Recorded Sex Assigned at Not on file Legal Sex Female 10:44 AM CDT Gender Identity Not on file Sexual Orientation Not on file documented as of this encounter Plan of Treatment Not on file documented as of this encounter Procedures Procedure Name Priority Date/Time Associated Diagnosis Comments DERMATOPATHOLOGY Routine 01/21/2025 12:0 0 AM CDT documented in this encounter Results * DERMATOPATHOLOGY (01/21/2025 12:00 AM CDT) Case Report Dermatopathology Report Case: [id number] Authorizing Provider: Raz Delgado MD Collected: 01/21/2025 12:00 AM Ordering Location: [facility] Physician [facility] - Received: 01/23/2025 10:54 AM DermPath Lab [...] characteristic determined by the Dermatopathology Laboratory at [facility], directed by Dr. Isabell Aguilar. These tests need not be, and therefore are not, approved by the [place] Food and Drug Administration. The tests are used for clinical purposes. Billing Codes Specimen Charges Stain Charges 23228 1 2:20 PM CDT DERMATOPATHOLOGY LABORATORY Embedded Images 2:20 PM CDT DERMATOPATHOLOGY LABORATORY Pathology/Cytolog y TISSUE SPECIMEN FROM SKIN / Unknown 01/21/2025 01/23/2025 10:54 AM CDT us Raz Delgado MD LAB - PATHOLOGY/CYTOLOGY ORDERAB LES Final Result DERMATOPATHOLOGY LABORATORY [facility] - Department of Dermatology [address] [place] [address], [facility] [phone] documented in this encounter Visit Diagnoses Not on filedocumented in this encounter
--- OUTSIDE RECORDS SUMMARY | 2025-02-27 01:00 | XMS_ITS | Encounter Summary ---
Author Organization [facility] Address [address] [place] [address] Care Team Providers Care Viscose Department Worker Name Role Phone Unavailable Primary Care Provider Unavailabl e Encounter Details Date Type Department Care Team (Late st Contact Info) Description 01/09/[address] [facility] - DermPath Lab [address] [place] [phone] Raz Delgado MD [address] [place] [address] Social History Tobacco Use Types Packs/Day Years [...] Priority Date/Time Associated Diagnosis Comments DERMATOPATHOLOGY Routine 01/07/2025 12:0 0 AM CDT documented in this encounter Results * DERMATOPATHOLOGY (01/07/2025 12:00 AM CDT) Case Report Dermatopathology Report Case: [id number] Authorizing Provider: Raz Delgado MD Collected: 01/07/2025 12:00 AM Ordering Location: [facility] Physician [facility] - Received: 01/09/2025 11:52 AM DermPath Lab Pathologist: Princess Mcqueen MD Specimen: Skin, right nasal fold 12:44 PM CDT DERMATOPATHOLOGY LABORATORY Final Diagnosis Specimen A. SKIN, right nasal fold: BASAL CELL CARCINOMA, NODULAR TYPE (C44.311) 12:44 PM CDT DERMATOPATHOLOGY LABORATORY at 1243 CDT Clinical History Cyst vs BCC 12:44 PM CDT DERMATOPATHOLOGY LABORATORY Gross Description Specimen A: Received is one formalin filled container labeled with the patient's name and designated right nasal fold. The specimen consists of a shave biopsy measuring 2 pieces 1x1x1,1x1x1 mm. Jar 0. 12:44 PM CDT DERMATOPATHOLOGY LABORATORY Microscopic Description Specimen A. SKIN, right nasal fold: Within the dermis there are aggregates of basaloid cells with a high nuclear to cytoplasmic ratio and peripheral palisading. 12:44 PM CDT DERMATOPATHOLOGY LABORATORY Disclaimer An external and internal positive and negative controls are appropriate for the histochemical, immunohistochemical and immunofluorescence stain(s) in this case (if any), except where stated explicitly. The performance characteristics of the stain(s) cited in this report were developed and its performance characteristic determined by the Dermatopathology Laboratory at [facility], directed by Dr. Isabell Aguilar. These tests need not be, and therefore are not, approved by the [place] Food and Drug Administration. The tests are used for clinical purposes. Billing Codes Specimen Charges Stain Charges 76524 1 12:44 PM CDT DERMATOPATHOLOGY LABORATORY Embedded Images 12:44 PM CDT DERMATOPATHOLOGY LABORATORY Pathology/Cytolog y TISSUE SPECIMEN FROM SKIN / Unknown 01/07/2025 01/09/2025 11:52 AM CDT Raz Delgado MD LAB - PATHOLOGY/CYTOLOGY ORDERAB LES Final Result DERMATOPATHOLOGY LABORATORY [facility] - Department of Dermatology [address] [phone] documented in this encounter Visit Diagnoses Not on filedocumented in this encounter
[2025-02-27 06:20] VITALS: BP 131/69; PULSE 51; RESP 18; TEMP 36.3; O2SAT 99
[2025-02-27] MEDS: LACTATED RINGERS 1,000 ML 30 ML IV CONT (06:40)
--- NOTE | 2025-02-27 07:21 | P.HP_ITS ---
H&P: HPI History of Present Illness Date/Time: 02/27/25 07:21 Chief Complaint: Vulvar lesion Narrative: This patient is 69 year old female with vulvar lesions. We have agreed it sized vulvar lesions in the operating room. She understands risks, benefits, and alternatives. This completed the informed consent process is ready to proceed. The patient understands the details of the procedure. The procedure has been explained in detail. She understands the risks. She understands that injuries may occur that result in hospitalization, more surgery, and severe illness. She understands risk of hemorrhage and infection. She denies any chest pain or shortness of breath. She denies any nausea, vomiting, fever, chills. Review of Systems Review of Systems: All systems reviewed & are unremarkable except as noted in HPI and below Constitutional: Constitutional: Denies chills, Denies fatigue, Denies fever(s) and Denies weakness Eyes: Eyes: Denies blurry vision, Denies change in vision, Denies loss of peripheral vision, Denies loss of vision, Denies other visual disturbances and Denies eye pain ENT: Denies vertigo, Denies dizziness, Denies hearing loss, Denies mouth pain, Denies nasal obstruction, Denies neck mass and Denies neck pain Cardiovascular: Cardiovascular: Denies chest pain, Denies diaphoresis, Denies syncope, Denies leg edema and Denies dyspnea Respiratory: Respiratory: Denies chest congestion, Denies cough, Denies hemoptysis, Denies dyspnea and Denies wheezing Gastrointestinal: Gastrointestinal: Denies abdominal pain, Denies constipation, Denies diarrhea, Denies nausea and Denies vomiting Genitourinary: Genitourinary: Denies hematuria, Denies change in libido, Denies nocturia, Denies genital lesions, Denies flank pain and Denies urinary urgency Musculoskeletal: Musculoskeletal: Denies abnormal gait, Denies back pain, Denies myalgias, Denies arthralgias, Denies joint swelling, Denies muscle weakness and Denies neck pain Integumentary/Breasts: Skin/Breast: Denies swelling, Denies breast pain, Denies breast mass, Denies dry skin, Denies nipple discharge, Denies unusual bruising and Denies jaundice Neurologic: Denies Neuro-related abnormal movements, Denies Abnormal speech present, Denies abnormal gait, Denies behavioral changes, Denies confusion, Denies vertigo, Denies dizziness, Denies syncope, Denies loss of vision, Denies memory loss, Denies convulsions and Denies weakness Psychiatric: Psychiatric: Denies abnormal sleep pattern, Denies behavioral changes, Denies change in libido, Denies confusion, Denies depression, Denies anhedonia and Denies memory loss Endocrine: Endocrine: Reports no additional endocrine complaints, Denies change in libido and Denies fatigue Hematologic/Lymphatic: Hematologic/Lymphatic: Reports no additional hematologic/lymphatic complaints Allergic/Immunologic: Allergic/Immunologic: Reports no additional allergic/immunologic complaints and Denies wheezing [facility] Past Medical History Medical History (Updated 02/27/25 @ 07:22 by Tarun Arreola MD) GERD (gastroesophageal reflux disease) Hypertension Hyperlipidemia Social History Social History Smoking packs per day: 1 Smoking cigarettes per day: 20.0 Years smoked: 50 Smoking pack-years: 50.00 Smoking status: Current every day smoker Tobacco type: cigarettes Alcohol intake: current Living arrangements: with family Additional living arrangements comments: [facility] Spiritual care concerns: No Meds Home Medications and Allergies Home Medications ?Medication ?Instructions ?Recorded ?Confirmed ?Type alendronate 70 mg tablet 70 mg PO WEEKLY 02/18/25 02/27/25 History amlodipine 10 mg tablet 10 mg PO QAM 02/18/25 02/27/25 History atenolol 100 mg tablet 100 mg PO QAM 02/18/25 02/27/25 History ergocalciferol (vitamin D2) 1,250 1,250 mcg PO WEEKLY 02/18/25 02/27/25 History mcg (50,000 unit) capsule gabapentin 300 mg capsule 900 mg PO TID 02/18/25 02/27/25 History magnesium 200 mg tablet 800 mg PO TID 02/18/25 02/27/25 History omeprazole 20 mg capsule,delayed 20 mg PO QAM 02/18/25 02/27/25 History release pravastatin 40 mg tablet 40 mg PO HS 02/18/25 02/27/25 History Allergies Allergy/AdvReac Type Severity Reaction Status Date / Time No Known Allergies Allergy Verified 02/27/25 06:24 Vital Signs Vital Signs - 24 hr 02/27/25 06:20 Temperature 97.4 F L Pulse Rate 51 L Respiratory Rate 18 Blood Pressure 131/69 Pulse Oximetry 99 Oxygen Delivery Room Air Exam Const: General: cooperative, healthy appearing, comfortable and no acute distress Orientation/consciousness: oriented to person, oriented to place and oriented to time HENMT: Head: normal to inspection Ears: external ears normal Face/Nose/Sinus: Normal external nose present and normal facial exam Face and sinus: normal facial exam Eyes: General: appearance normal, both eyes and all related structures Neck: Neck: normal visual inspection, trachea midline and supple Resp: Auscultation: clear to auscultation bilaterally, no crackles, no rales, no rhonchi and no wheezes Cardio: Rate: regular rate Rhythm: regular rhythm Heart sounds: no click, no murmurs and no rubs GI: GI Palp: No abdominal tenderness, No Soft to palpation, No Tenderness to palpation present (GI) and No Palpable mass present Auscultation: normal bowel sounds Skin: General skin exam: normal color and no rashes or lesions noted Neuro: General: oriented to person, oriented to place and oriented to time Extrem: General: normal to inspection, no joint enlargement, no clubbing, cyanosis or edema, no pedal edema and no calf tenderness Psych: Appearance: grossly normal Mental Status: mental status grossly normal Speech and movement: Normal speech and movement present Assessment and Plan Assessment and plan (1) Vulvar lesion: Code(s): N90.89 - Other specified noninflammatory disorders of vulva and perineum Status: Acute Plan This patient is 69 year old female with vulvar lesions. We have agreed it sized vulvar lesions in the operating room. She understands risks, benefits, and alternatives. This completed the informed consent process is ready to proceed.
--- NOTE | 2025-02-27 07:22 | WPDHPUPDATE1 ---
History and Physical Update Update Date/Time: 02/27/25 07:22 History and Physical has been reviewed, including an updated exam of the patient. There are NO changes in the patient's condition. Risks, benefits, and alternatives have been discussed and questions answered. Patient agrees to proceed with procedure.
[2025-02-27] MEDS: ceFAZolin 2 GM/D5W 50 ML 2 GM/50 ML BAG IVPB (07:29)
[2025-02-27] MEDS: LIDO 1%/EPINEPHRINE 1:100,000 20 ML VIAL INFILTRATE (07:45)
--- NOTE | 2025-02-27 07:46 | S_PTH ---
PATIENT: Odalis Rea LOC: [facility] U#:[id number] AGE/SX: 69/F ROOM: RE02/27/[address]: Tarun Arreola MD : 1955 BED: DIS: 02/27/2025 SPEC #: [id number] RECD: 02/27/25 09:44 STATUS: OSORIO REQ #: [id number] TIM: 02/27/25 07:[address]: Tarun Arreola DEPT: [facility] Surgical RECD BY: Deann Santacruz ENTERED: 02/27/25 09:45 SP TYPE: Surgical OTHR DR: Yaya SargentMD Tissues: A - Skin Procedures: Hematoxylin and Eosin Stain Gross and Microscopic Level 4
[2025-02-27 08:15] VITALS: BP 98/50; PULSE 55; RESP 14
--- NOTE | 2025-02-27 08:31 | P.OP_ITS ---
Procedure Note - Detailed Date of Procedure 02/27/25 Pre-op Diagnosis Vulvar Lesions Post-op Diagnosis Same Procedure Performed Excision of vulvar lead Surgeon Tarun Arreola MD Anesthesia MAC Findings Multiple inclusion cysts of the right vulva Description of Procedure The patient was taken to the operating room. She was prepped and draped in the dorsal lithotomy position. The vulva was prepped with Betadine. Excision of 3 inclusion cyst in the left vulva was performed. Each area an elliptical incision 2 elliptical incisions were created with scalpel. They were full- thickness incisions of the skin. Each was approximately 3 cm. They were then c losed 4 Monocryl in a subcuticular fashion. They were covered with glue. Estimated Blood Loss 5 Pathology Yes Complications No immediate complications Condition Stable Disposition Same day
[2025-02-27 08:45] VITALS: BP 109/56; PULSE 56; RESP 20
[2025-02-27 09:15] VITALS: BP 116/58; PULSE 56; RESP 20
== END 2025-02-27 09:20 | disposition home or self-care (01) ==
PROVIDERS: PCP Family Medicine; Visit Provider Obstetrics & Gynecology
PROC: (CPT 11423; principal; 2025-02-27 07:30)
DX: N90.7 Vulvar cyst (principal); E78.5 Hyperlipidemia, unspecified; I10 Essential (primary) hypertension; K21.9 Gastro-esophageal reflux disease without esophagitis; F17.210 Nicotine dependence, cigarettes, uncomplicated; Z79.83 Long term (current) use of bisphosphonates
CPT/HCPCS: 11423; 88305; J0690; J1100; J1596; J2003; J2004; J2250; J2371; J2405; J2704; J3010; J7120